=== PATIENT | female | born 1980 | race African-American/Black ===

== ENCOUNTER 2018-01-06 20:19 | Inpatient (IN) | payer MEDICARE ==
[2018-01-06] MEDS ORDERED: Propofol 1,000 MG/100 ML VIAL IV ONE (20:21)
[2018-01-06 20:53] LABS: Base Excess (BEa) -0.2 mEq/L (0 (+/-) 2.5); CO2 Tension 56.2 mmHg (35.0-45.0); O2 Tension (PaO2) 59.7 mmHg (80.0-100.0)
[2018-01-06 20:54] LABS: Analyzer IN Cardio ER; Calcium, Ionized 1.1 mmol/L (1.12-1.30); Hematocrit-ABG 40.8 % (36.0-47.0); Hemoglobin (Hb) 11.7 g/dL (12.0-16.0)
[2018-01-06 20:55] LABS: Puncture Site LRA
[2018-01-06 21:04] LABS: #Basophils 0.1 thou/uL (0.0-0.2); #Eosinphils 0.7 thou/uL (0.0-0.7); #Lymphocytes 2.7 thou/uL (1.20-3.40); #Monocytes 0.4 thou/uL (0.11-0.59); #Neutrophils 14.8 thou/uL (1.40-6.50); %Basophils 0.6 % (0.0-1.0); %Eosinophils 3.9 % (0.0-10.0); %Lymphocytes 14.4 % (21.0-51.0); %Monocytes 2.2 % (0.0-10.0); %Neutrophils 78.8 % (42.0-75.0); Mean Corpuscular HGB CONC 32.6 g/dL (32.0-36.0); Mean Corpuscular Hemoglobin 29.8 pg (27.0-31.0); Mean Corpuscular Volume 91.5 fl (81.0-99.0); Mean Platelet Volume 8.1 fL (7.4-10.4); Platelet Count 314 thou/uL (130-400); RBC Distribution Width 15.3 % (11.5-14.5); Red Blood Cell (RBC) Count 4.04 mill/uL (4.20-5.40); White Blood Cell (WBC) Count 18.8 thou/uL (4.8-10.8)
[2018-01-06 21:11] LABS: INR-International Normal Ratio 1.1; PTT 29.7 SEC (22.9-36.1); Prothrombin Time 14.6 SEC (12.0-14.7)
[2018-01-06] MEDS ORDERED: Furosemide 40 MG/4 ML VIAL ONE (21:14)
[2018-01-06] MEDS ORDERED: Midazolam HCl 5 mg/ml Vial ONE (21:14)
[2018-01-06] MEDS ORDERED: Furosemide 20 MG/2 ML VIAL ONE (21:14)
--- NOTE | 2018-01-06 21:24 | RAD ---
PORTABLE CHEST ONE VIEW: Date: 01-06-18 Time: 8:55 p.m. History: Dyspnea, respiratory failure, end stage renal disease. FINDINGS/IMPRESSION: There is an endotracheal tube with tip just below the level of the clavicular heads. The heart is enl arged. There is pulmonary vascular congestion. No pneumothoraces or effusions are seen. There is cons olidation in the right mid and lower lung zones and the left lower lung zone. POS: [facility]
[2018-01-06 21:30] LABS: CKMB 1.1 ng/mL (0-6.6); Troponin I 0.048 ng/mL (< 0.028)
--- NOTE | 2018-01-06 21:38 | CON ---
DATE OF CONSULTATION: 01/06/2018 HISTORY OF PRESENT ILLNESS: Ms. Hernandez is a 37-year-old black female with ESRD, had been on maint enance hemodialysis and admitted for shortness of breath. She was found to be in acute respiratory f ailure secondary to presumed congestive heart failure. She was subsequently intubated by the EMS. S he was found in the ER. I have evaluated this patient. I feel that she will need an emergency dialy sis tonight. According to the mother, the patient became suddenly short of breath early this afterno on. Prior to that, she was asymptomatic. Patient denied any syncopal episode or chest pain. REVIEW OF SYSTEMS: Not obtainable since the patient is intubated in ventilator support. HOME MEDICATIONS: Include prednisone Dosepak, clonidine 0.3 mg p.o. t.i.d., Ambien 5 mg at bedtime, pravastatin 20 mg tab at bedtime, NPH insulin 15 units subcu b.i.d., mycophenolate? 360 mg b.i.d., ca rvedilol 25 mg p.o. b.i.d. Please note that these medications from her old record. Also, for the completion of her records, she is no longer taking mycophenolate. PAST MEDICAL HISTORY: 1. ESRD, currently on maintenance hemodialysis Sunday, Sunday, and Sunday done at [facility] . 2. ESRD from hypertensive nephropathy. 3. Longstanding hypertension. 4. Status post failed living related renal transplant. 5. Type 2 diabetes mellitus. 6. Depression. 7. Hyperlipidemia. PAST SURGICAL HISTORY: 1. Status post failed living related renal transplant. 2. Status post AV fistula placement. 3. Status post cuffed hemodialysis catheter placement. 4. Status post AV fistula placement. 5. Status post renal allograft biopsy. SOCIAL HISTORY: The patient has a live-in boyfriend. She also lives with her mother. She lives in [place]. Two children. Alcohol none. Smoked for 3 months 3 cigarettes per day, currently not smokin g or drug abuse. Status post blood transfusion. Retired [employer]. Education, high school. ALLERGIES: None. TRAUMA: None. IMMUNIZATIONS: Up to date. HOSPITALIZATIONS: Please see past medical history. FAMILY HISTORY: No family history of ESRD. PHYSICAL EXAMINATION: VITAL SIGNS: Blood pressure is 110/70, heart rate 89, O2 sat 98%. GENERAL: She is sedated, intubated on ventilator support. SKIN: Adequate turgor. HEENT: She has pinkish conjunctivae, anicteric sclerae. NECK: No neck mass, no carotid bruits, no JVD. CHEST: No deformities. LUNGS: Harsh breath sounds. Positive for crackles. HEART: Tachycardic. No murmur, no gallops, no rubs. ABDOMEN: Globular, soft, nontender, no masses. EXTREMITIES: No edema. NEUROLOGIC: The patient is sedated. DIAGNOSTIC DATA: Laboratories are currently pending. Chest x-ray pending. ASSESSMENT AND PLAN: 1. Acute respiratory failure. Consider the possibility of flash pulmonary edema. Emergent hemodial ysis will be scheduled today. Continue supportive care. Continue ventilator support. 2. End-stage renal disease - In view of the acute respiratory failure and congestive heart failure, we will do an emergency dialysis of 3-1/2 hours. Attempt to remove around 3 liters of fluid as marzena ated by the patient. We will resume her back then on 3 times a week hemodialysis regimen. Overall, prognosis remains guarded. I had a long discussion with the fiance with the mother bobnevaeh negron diagnosis and prognosis. Agree with current management.
[2018-01-06] MEDS ORDERED: fentaNYL Citrate/PF 2,000 MCG in Sodium Chloride 0.9% 60 ML IV SCH (21:53)
[2018-01-06] MEDS ORDERED: CCU Electrolyte Replacement 1 EACH IVPB SCH (22:09)
[2018-01-06] MEDS ORDERED: Potassium Phosphate 12 MMOL in Sodium Chloride 0.9% 250 ML 250 ML IV PRN (22:15)
[2018-01-06] MEDS ORDERED: Magnesium Oxide 400 MG TAB PO PRN ×2 (22:15)
[2018-01-06] MEDS ORDERED: Potassium Chloride 40 MEQ in Premix Bag 1 BAG IVPB PRN (22:15)
[2018-01-06] MEDS ORDERED: CCU ELECTROLYTE REPLACEMENT PROTOCOL FS PRN (22:15)
[2018-01-06] MEDS ORDERED: Potassium Chloride 40 MEQ in Sodium Chloride 0.9% 250 ML 250 ML IVPB PRN (22:15)
[2018-01-06] MEDS ORDERED: Potassium Phosphate 15 MMOL in Sodium Chloride 0.9% 250 ML 250 ML IV PRN (22:15)
[2018-01-06] MEDS ORDERED: Magnesium 2 GM/NS 0.9% 100 ML 2 GM in Premix Bag 1 BAG IVPB PRN (22:15)
[2018-01-06] MEDS ORDERED: Potassium Phosphate 9 MMOL in Sodium Chloride 0.9% 100 ML IVPB PRN (22:15)
[2018-01-06] MEDS ORDERED: Potassium Chloride 20 MEQ TAB PO PRN (22:15)
[2018-01-06] MEDS ORDERED: Dextrose 5% in Water 1,000 ML IV PRN (22:24)
[2018-01-06] MEDS ORDERED: HumaLOG 300 UNITS/3 ML VIAL SC PRN (22:24)
[2018-01-06] MEDS ORDERED: VANCOMYCIN/ ZOSYN IVPB PRN (22:48)
[2018-01-06] MEDS ORDERED: DISCONTINUE PREVIOUS NARCOTIC PAIN MEDICATIONS AND BENZODIAZEPINES FS SCH (22:51)
[2018-01-06] MEDS ORDERED: Morphine 2 MG/ML SYRINGE SLOW IVP PRN (22:51)
[2018-01-06] MEDS ORDERED: Vancomycin HCl 1.25 GM in Sodium Chloride 0.9% 250 ML 250 ML IVPB SCH (23:30)
[2018-01-06] MEDS ORDERED: Piperacillin/Tazobactam 2.25 GM in Sodium Chloride 0.9% 100 ML IVPB SCH (23:59)
[2018-01-07] MEDS: Dextrose 50% Abboject 50 ML SYRINGE SLOW IVP PRN ×2 (00:23→05:46)
[2018-01-07 00:33] LABS: Troponin I 0.203 ng/mL (< 0.028)
[2018-01-07] MEDS: Propofol 1,000 MG/100 ML VIAL IV PRN ×6 (01:08→20:36)
[2018-01-07 02:30] LABS: Hep B Surf Ag Non-Reactive S/CO (NonReactive)
[2018-01-07] MEDS: Lorazepam 2 MG/ML VIAL SLOW IVP PRN ×5 (02:50→15:58)
[2018-01-07] MEDS ORDERED: Vancomycin HCl 750 MG in Sodium Chloride 0.9% 250 ML 250 ML IVPB SCH (03:30)
[2018-01-07] MEDS ORDERED: Vancomycin HCl 1.25 GM in Sodium Chloride 0.9% 250 ML 250 ML IVPB SCH (03:30)
[2018-01-07] MEDS ORDERED: Vancomycin HCl 1 GM in Premix Bag 1 BAG IVPB SCH (03:30)
[2018-01-07] MEDS ORDERED: HOLD VANCOMYCIN FOR LEVEL >20 FS SCH (03:30)
[2018-01-07] MEDS ORDERED: Vancomycin HCl 500 MG in Sodium Chloride 0.9% 100 ML IVPB SCH (03:30)
--- NOTE | 2018-01-07 04:19 | HP ---
PRIMARY CARE PHYSICIAN: Unable to obtain. PRESENTING COMPLAINT: Shortness of breath. HISTORY OF PRESENT ILLNESS: Mary Arzate is a 37-year-old female with a past medical history of end-stage renal disease on hemodialysis, history of nephrectomy, hypertension, diabetes mellitus, hypothyroidism, hyperlipidemia, who presents to the emergency room with shortness of breath, which worsened this evening. She has a history of pulmonary edema and required intubation about 2 years ago. She was markedly short of breath with last hemodialysis session being this Sunday. EMS was called and the patient was placed on CPAP; however, she became almost obtunded and had to be intubated. She was placed on propofol for sedation. PAST MEDICAL HISTORY: As stated in HPI. PAST SURGICAL HISTORY: Unable to obtain. FAMILY HISTORY: Reviewed and noncontributory. SOCIAL HISTORY: Does not smoke cigarette, drink alcohol, or use illicit drugs. ALLERGIES: None. REVIEW OF SYSTEMS: Unable to obtain as the patient was intubated. HOME MEDICATIONS: Reviewed and charted. PHYSICAL EXAMINATION: VITAL SIGNS: Stable with a heart rate of 97, oxygen saturation of 100%, and blood pressure of 151/97. GENERAL: Not in acute distress, intubated, sedated. HEENT: Normocephalic, atraumatic. Not pale, anicteric. PERRLA. Moist mucous membranes. RESPIRATORY: Bronchial breath sounds bilaterally with lower basilar crackles. CARDIOVASCULAR: S1 and S2 only. Regular rate and rhythm. No murmurs, rubs, or gallops. MUSCULOSKELETAL: No edema. SKIN: Warm, dry, well perfused. PSYCHIATRIC: The patient is intubated, unable to assess. NEUROLOGIC: The patient is intubated, unable to cooperate with exam. LABORATORY DATA: WBC 18,000. INR 1.1. Chemistry showed sodium of 134 with potassium of 5.9, chloride of 94, creatine kinase 106, troponin 0.048. BNP 3951.9. Blood gas showed pH of 7.3 with pCO2 of 56 and pO2 of 59. CXR: showed pulmonary vascular congestion with consolidation in the right middle and lower lung zones and left lower lung zones. EKG showed no signs of acute ischemia. ASSESSMENT AND PLAN: 1. Acute hypoxemic, hypercapnic respiratory failure. This is likely secondary to pulmonary edema versus PNA. The patient had hemodialysis on Sunday, but her chest x-ray showed marked pulmonary congestion with some consolidation, which means there could be a healthcare-associated pneumonia component. Nephrology has been consulted for urgent hemodialysis. The patient seems comfortable now after intubation. We will follow up with Nephrology for hemodialysis. Ensure VAP bundle, famotidine IV b.i.d., and start on prophylactic antibiotics. 2. End-stage renal disease, on hemodialysis as above 3. Hypertension. The patient's blood pressure seems to be controlled following sedation. We will monitor her blood pressure. Hydralazine and labetalol p.r.n. for systolic blood pressure greater than 180. 4. Hypothyroidism. We will monitor. 5. DM on Insulin: Will place on SSI, finger stick glucose Q6H, hypoglycemia protocol. CODE STATUS: FULL. MTDD
[2018-01-07 04:20] LABS: Band 2 % (5-11); Eosinophils 2 % (0-10); Hemoglobin 11.2 g/dL (12.0-16.0); Lymphocytes 14 % (21-51); MDiff Complete? YES; Mean Corpuscular HGB CONC 33.1 g/dL (32.0-36.0); Mean Corpuscular Hemoglobin 29.8 pg (27.0-31.0); Mean Platelet Volume 8.3 fL (7.4-10.4); Monocytes 2 % (0-10); Neutrophil 80 % (42-75); PLT Morphology Comment Appears Adequate; Platelet Count 233 thou/uL (130-400); RBC Distribution Width 15.2 % (11.5-14.5); Red Blood Cell (RBC) Count 3.76 mill/uL (4.20-5.40); White Blood Cell (WBC) Count 10.4 thou/uL (4.8-10.8)
[2018-01-07 04:27] LABS: ALT (SGPT) 15 U/L (8-55); AST (SGOT) 36 U/L (5-34); Albumin 4.2 g/dL (3.5-5.0); Alkaline Phosphatase 94 U/L (40-150); Anion Gap 13 mmol/L (10-20); BUN (Urea Nitrogen) 19 mg/dL (7.0-18.7); Bilirubin, Total 0.7 mg/dL (0.2-1.2); Calc. Creatinine Clearance 21 mL/min (70-130); Calcium 9.7 mg/dL (7.8-10.44); Carbon Dioxide 31 mmol/L (22-29); Chloride 98 mmol/L (98-107); Estimated GFR-MDRD 15; Globulin 3.3 g/dL (2.4-3.5); Glucose 75 mg/dL (70-105); Potassium 3.2 mmol/L (3.5-5.1); Protein, Total 7.5 g/dL (6.0-8.3); Sodium 139 mmol/L (136-145)
[2018-01-07 04:30] LABS: Troponin I 0.282 ng/mL (< 0.028)
[2018-01-07] MEDS: Piperacillin/Tazobactam 2.25 GM in Sodium Chloride 0.9% 100 ML IVPB SCH ×4 (05:56→23:54)
[2018-01-07] MEDS ORDERED: Furosemide 40 MG/4 ML VIAL SLOW IVP SCH ×2 (06:00→14:00)
[2018-01-07] MEDS ORDERED: hydrALAZINE 20 MG/ML VIAL SLOW IVP PRN (06:09)
[2018-01-07] MEDS: Acetaminophen 650 MG Suppository PR PRN ×2 (07:37→16:04)
[2018-01-07] MEDS: Heparin 5,000 UNITS/ML VIAL SC SCH ×3 (07:44→20:30)
[2018-01-07] MEDS: Famotidine/PF 20 mg/2ml Vial SLOW IVP SCH (07:44)
--- NOTE | 2018-01-07 09:11 | CON ---
DATE OF CONSULTATION: 01/07/2018 Ms. Hernandez is a 37-year-old female who has seen Dr. Flores in the past. She is intubated on the ve nt. Emergency dialysis performed. She sees Dr. Anderson, apparently undergoing dialysis in [place]. X-r ay still shows rather impressive bilateral pleural effusion, cephalization. She was here in September 2013. She is status post failed transplant, now on dialysis. Additional information not obtained because she is not talking. Intubated. PAST MEDICAL HISTORY: Pertinent for hypertension, renal failure, diabetes. Dialysis Sunday, and Fridays, hypertension, failed a living related renal transplant, diabetes, dyslipidemia. PAST SURGICAL HISTORY: Multiple access fistulas, renal biopsy. SOCIAL/FAMILY HISTORY: No alcohol abuse. Minimal tobacco abuse. MEDICATIONS: Her list of medicine from home has included prednisone 10, Catapres 0.3, Ambien 5, Prav achol 20, insulin, Myfortic 360, insulin, Pepcid, Celexa 10, Coreg and amlodipine. On admission she was started on vancomycin and Zosyn. REVIEW OF SYSTEMS: Unobtainable. Please note I reviewed all medical records, all x-rays. No family members to give additional informa tion: PHYSICAL EXAMINATION: VITAL SIGNS: Pulse 170, sats 96%, respirations 30, blood pressure is 174/100. CHEST: Chest revealed decreased breath sounds, no wheezing. Bilateral rhonchi and crackles. CARDIAC: Normal S1, S2. ABDOMEN: Soft, no masses. LABORATORY DATA: White count 10,000. H&H 10 and 33, platelet count is 233, creatinine 3.95, BUN 19. IMPRESSION: 1. Respiratory failure, bilateral pulmonary edema. 2. Failed renal transplant. 3. Hypertension. 4. Diabetes. 5. Depression. PLAN: Start nutrition, PT and supportive care. Continue antibiotics, started steroids. Continue an tirejection medication. We will wean when x-ray is much improved. Discuss with family as they arrive. Forty-five minutes critical care time.
--- NOTE | 2018-01-07 09:26 | RAD ---
AP VIEW CHEST: HISTORY: Ventilator-dependent patient. Respiratory distress. Shortness of breath. FINDINGS: AP view chest is obtained on 01/07/18. Comparison is made to previous exam from 01/06/18. AP view chest demonstrates nasogastric tube in place. There is marked cardiomegaly seen. There is extensive airspace opacity seen in both lung bases and central aspects of both lungs. This is compatible with pulmonary edema or pneumonia. Findings not significantly changed since the previo us day's exam. IMPRESSION: 1. Bilateral perihilar and lung base airspace opacities. 2. Cardiomegaly. POS: [facility]
--- NOTE | 2018-01-07 10:00 | PRG ---
DATE OF SERVICE: 01/07/2018 SUBJECTIVE: Ms. Hernandez is a 37-year-old black female who was admitted for congestive heart failur e. She was intubated. She underwent hemodialysis yesterday and 3 liters of fluid was removed. I reeder ve reevaluated this patient this morning. She will need another dialytic intervention. My plan is t o do another 3-hour dialysis with 3 liters of fluid removal. OBJECTIVE: VITAL SIGNS: Blood pressure is 189/102, heart rate is 119, respiratory rate 32, pulse ox 99%. GENERAL: Sedated and intubated on ventilator support. SKIN: Adequate turgor. HEENT: She has pinkish conjunctivae, anicteric sclerae. NECK: No neck mass, no carotid bruits, no JVD. CHEST: No deformities. LUNGS: Clear. Decreased breath sounds. HEART: Normal sinus rhythm. No murmur, no gallops, no rubs. ABDOMEN: Globular, soft, nontender, no masses. EXTREMITIES: No edema, no deformities. MEDICATIONS: 01/07/2018 - Reviewed. LABORATORY: 01/07/2018 - White count 10.4, hemoglobin 11.2, hematocrit 33.9. Sodium 139, potassium 3.2, chloride 98, carbon dioxide 31, BUN 90, creatinine 3.95. AST 36, ALT 15. ASSESSMENT AND PLAN: 1. Congestive heart failure. We will do another dialytic intervention. Max out fluid removal as to lerated. 2. End-stage renal disease, stable. We will continue current Sunday, Sunday, Sunday hemodialysis . Extra dialysis in a.m. if needed to further remove fluid with this patient. 3. Hypertension. Continue current blood pressure meds. I agree with current management.
[2018-01-07 11:13] LABS: Actual Bicarbonate (HCO3a) 26.5 mEq/L (22-26); Base Excess (BEa) 3.2 mEq/L (0 (+/-) 2.5); CO2 Tension 35.7 mmHg (35.0-45.0); Hematocrit-ABG 35.2 % (36.0-47.0); Hemoglobin (Hb) 10.3 g/dL (12.0-16.0); O2 Tension (PaO2) 59.8 mmHg (80.0-100.0); pH, Arterial 7.49 (7.35-7.45)
[2018-01-07 11:14] LABS: ALV-art Gradient 252.075 (0-20); Calcium, Ionized 1.1 mmol/L (1.12-1.30); Puncture Site LBA
[2018-01-07] MEDS: Hydrocortisone Sod Succ/PF 100 mg/2 ml Vial IVP SCH ×3 (12:18→23:53)
--- NOTE | 2018-01-07 13:43 | PDOC.PN ---
- Subjective Encounter Start Date: 01/07/18 Encounter Start Time: 11:00 Subjective: pt intubated - Objective Vital Signs & Weight: Vital Signs (12 hours) Temp Pulse Resp BP Pulse Ox 01/07/18 12:07 120 H 187/106 H 01/07/18 12:00 99.9 F H 42 H 01/07/18 10:00 27 H 01/07/18 08:00 102.1 F H 33 H 01/07/18 07:33 102.1 F H 118 H 41 H 100 01/07/18 06:43 119 H 178/93 H 94 L 01/07/18 06:39 118 H 43 H 93 L 01/07/18 06:15 112 H 191/101 H 01/07/18 05:36 29 H 01/07/18 04:00 100.8 F H 01/07/18 03:53 33 H 01/07/18 01:50 22 H Weight Admit Weight 153 lb 3.2 oz Weight 146 lb 6.191 oz Most Recent Monitor Data Heart Rate from ECG 124 NIBP 178/107 NIBP BP-Mean 133 Respiration from ECG 43 SpO2 100 I&O: 01/06/18 01/07/18 01/08/18 06:59 06:59 06:59 Intake Total 316 Output Total 650 Balance -334 Result Diagrams: 01/07/18 03:24 01/07/18 03:30 Additional Labs: Accuchecks 01/07/18 01/07/18 01/07/18 12:16 06:39 05:41 POC Glucose 80 132 H 63 L 01/07/18 01/07/18 01/07/18 03:14 02:11 00:57 POC Glucose 75 79 84 01/07/18 01/06/18 00:00 23:11 POC Glucose 67 L 73 Phys Exam - Physical Examination Neck: no nodes, no JVD Respiratory: wheezing present (rhonchi all voer) Cardiovascular: RRR (tachycardia) Gastrointestinal: soft Musculoskeletal: no edema Dx/Plan - Plan * . 1) acute hypoxic resp failure 2) ESRD on dialysis 3) diastolic HF 4) hpothyrodism 5) htn plan: possible secondary to volume overload vs pna. pt on abx for now. intubated 01/06 on dialysis per nephrology pt's last echo was 2012 her ef was 70% will reorder echo. pt's bp is uncotrolled will give prn and pt is on solucortef which can also cause pt to have elevated bp. Consider stopping solucortef.. Review of Systems - Medications/Allergies Allergies/Adverse Reactions: Allergies Allergy/AdvReac Type Severity Reaction Status Date / Time No Known Allergies Allergy Unverified 10/06/13 17:19 Medications: Current Medications Acetaminophen (Tylenol) 650 mg [place] Q6H PRN PRN Reason: Fever > 101 or Mild Pain Last Admin: 01/07/18 07:37 Dose: 650 mg Dextrose/Water (Dextrose 50%) 25 gm SLOW IVP PRN PRN PRN Reason: Hypoglycemia Last Admin: 01/07/18 05:46 Dose: 25 gm Famotidine (Pepcid) 20 mg SLOW IVP DAILY [facility] Last Admin: 01/07/18 07:44 Dose: Not Given Furosemide (Lasix) 40 mg SLOW IVP 0600,1400 NILA Last Admin: 01/07/18 13:20 Dose: Not Given Glucagon (Glucagon) 1 mg IM PRN PRN PRN Reason: Hypoglycemia Heparin Sodium (Porcine) (Heparin) 5,000 units SC TID NILA Last Admin: 01/07/18 07:44 Dose: 5,000 units Hydralazine HCl (Apresoline) 10 mg SLOW IVP Q6H PRN PRN Reason: SBP > 180 Last Admin: 01/07/18 06:15 Dose: 10 mg Hydrocortisone Sodium Succinate (Solu-Cortef) 50 mg IVP Q6HR NILA Stop: 01/14/18 12:01 Last Admin: 01/07/18 12:18 Dose: 50 mg Fentanyl Citrate 2,000 mcg/ (Sodium Chloride) 100 mls @ 0 mls/hr IV INF NILA; Per Protocol PRN Reason: Protocol Stop: 02/05/18 21:53 Dextrose/Water (D5w) 1,000 mls @ 0 mls/hr IV .Q0M PRN; As Directed PRN Reason: Hypoglycemia Fentanyl Citrate (Fentanyl Bolus) 250 mls @ 0 mls/hr IVPB PRN PRN; As Directed PRN Reason: Breakthrough pain Stop: 02/05/18 22:51 Piperacillin Sod/Tazobactam (Sod 2.25 gm/ Sodium Chloride) 100 mls @ 200 mls/ hr IVPB Q6HR NILA Last Admin: 01/07/18 12:19 Dose: 100 mls Vancomycin HCl 1.25 gm/ Sodium (Chloride) 250 mls @ 166.667 mls/hr IVPB [facility] Vancomycin HCl 1 gm/ Device 200 mls @ 200 mls/hr IVPB [facility] Vancomycin HCl 750 mg/ Sodium (Chloride) 250 mls @ 250 mls/hr [facility] Vancomycin HCl 500 mg/ Sodium (Chloride) 100 mls @ 100 mls/hr IVPB [facility] Influenza Virus Vaccine (Fluzone Quad [id number] Syringe) 0.5 ml IM .ONCE ONE Stop: 01/08/18 09:01 Insulin Human Lispro (Humalog) 0 units SC .MILD SLIDING SCALE PRN PRN Reason: Mild Correctional Scale Lorazepam (Ativan) 2 mg SLOW IVP Q2H PRN PRN Reason: Anxiety to achieve Houser 2-3 Stop: 02/05/18 22:51 Last Admin: 01/07/18 09:21 Dose: 2 mg Miscellaneous Medication (Pharmacy To Dose) 1 each IVPB PRN PRN PRN Reason: Pharmacy to dose Morphine Sulfate (Morphine Sulfate) 2 mg SLOW IVP Q2H PRN PRN Reason: Breakthrough pain Stop: 02/05/18 22:51 Hold Vancomycin For (Level >20) 0 each FS .AT DIALYSIS [facility] Propofol (Diprivan) 1,000 mg IV INF PRN; Protocol PRN Reason: TO ACHIEVE HOUSER SCORE 2-3 Stop: 02/05/18 22:51 Last Admin: 01/07/18 12:16 Dose: 1,000 mg Sodium Chloride (Flush - Normal Saline) 10 ml IVF PRN PRN PRN Reason: Saline Flush Sodium Chloride (Flush - Normal Saline) 10 ml IVF Q12HR [facility] Last Admin: 01/07/18 07:44 Dose: 10 ml unable to do ROS pt is intubated
[2018-01-07] MEDS: Labetalol HCl 100 MG/20 ML VIAL SLOW IVP PRN (18:10)
[2018-01-08 05:02] LABS: Hemoglobin 12.2 g/dL (12.0-16.0); Mean Corpuscular HGB CONC 32.5 g/dL (32.0-36.0); Mean Corpuscular Volume 92.2 fl (81.0-99.0); Mean Platelet Volume 8.7 fL (7.4-10.4); Platelet Count 256 thou/uL (130-400); RBC Distribution Width 15.7 % (11.5-14.5); Red Blood Cell (RBC) Count 4.06 mill/uL (4.20-5.40); White Blood Cell (WBC) Count 11.8 thou/uL (4.8-10.8)
[2018-01-08 05:03] LABS: Band 3 % (5-11); Lymphocytes 20 % (21-51); MDiff Complete? YES; Monocytes 3 % (0-10); Neutrophil 73 % (42-75); PLT Morphology Comment Appears Adequate; RBC Morphology Normal; Reactive Lymphocytes 1 % (0-10)
[2018-01-08] MEDS: Propofol 1,000 MG/100 ML VIAL IV PRN (05:03)
[2018-01-08] MEDS: Hydrocortisone Sod Succ/PF 100 mg/2 ml Vial IVP SCH (05:05)
[2018-01-08] MEDS: Piperacillin/Tazobactam 2.25 GM in Sodium Chloride 0.9% 100 ML IVPB SCH ×3 (05:07→18:55)
[2018-01-08 05:24] LABS: ALT (SGPT) 13 U/L (8-55); AST (SGOT) 36 U/L (5-34); Albumin 4.1 g/dL (3.5-5.0); Alkaline Phosphatase 82 U/L (40-150); Anion Gap 22 mmol/L (10-20); BUN (Urea Nitrogen) 34 mg/dL (7.0-18.7); Bilirubin, Total 0.7 mg/dL (0.2-1.2); Calc. Creatinine Clearance 11 mL/min (70-130); Calcium 10.3 mg/dL (7.8-10.44); Carbon Dioxide 24 mmol/L (22-29); Chloride 97 mmol/L (98-107); Estimated GFR-MDRD 8; Globulin 3.7 g/dL (2.4-3.5); Glucose 127 mg/dL (70-105); Potassium 4.8 mmol/L (3.5-5.1); Protein, Total 7.8 g/dL (6.0-8.3); Sodium 138 mmol/L (136-145)
[2018-01-08 07:14] LABS: Actual Bicarbonate (HCO3a) 28.2 mEq/L (22-26); Base Excess (BEa) 3.6 mEq/L (0 (+/-) 2.5); CO2 Tension 42.8 mmHg (35.0-45.0); Calcium, Ionized 1.1 mmol/L (1.12-1.30); Hematocrit-ABG 38.9 % (36.0-47.0); Hemoglobin (Hb) 11.7 g/dL (12.0-16.0); pH, Arterial 7.44 (7.35-7.45)
[2018-01-08 07:15] LABS: Puncture Site L.R.
--- NOTE | 2018-01-08 07:47 | RAD ---
CHEST 1 VIEW: HISTORY: Dyspnea. Followup. COMPARISON: 01/07/18. FINDINGS: Cardiac silhouette remains magnified and enlarged. Pulmonary vasculature is less engorged than on th e prior study. Dense widespread bilateral infiltrates are less dense than on the prior exam. Medias tinum is midline. Lines and tubes appear unchanged in position. No evidence of pneumothorax. IMPRESSION: Improved aeration in the lungs with decrease in degree of pulmonary vascular congestion. POS: [facility]
[2018-01-08 08:12] LABS: Vancomycin, Random 8.4 ug/mL (See Comment)
--- NOTE | 2018-01-08 08:51 | PRG ---
DATE OF SERVICE: 01/08/2018 She is sedated on the vent. X-ray looks much improved after being dialyzed yesterday. PHYSICAL EXAMINATION: VITAL SIGNS: Blood pressure is 134/80, pulse 80, respirations 18. CHEST: Chest reveals decreased breath sounds, no wheezing. CARDIAC: Normal S1, S2. ABDOMEN: Soft, no mass. LABORATORY DATA: White count 11,000, H&H 12 and 37, platelet count 256, pO2 164, PCO2 27.44, rate of 10, 50%. Creatinine is 6.83. IMPRESSION: 1. Renal failure. 2. Respiratory failure. 3. Pulmonary edema, improved. 4. Status post transplant. PLAN: Cultures are so far negative. She is still on broad-spectrum antibiotics, which include vancomycin. When she is a little bit more awake, we will try and wean. In the meantime, continue nutrition and PT. One-half hour critical care time.
[2018-01-08] MEDS ORDERED: FLU VACC QS2017-18 36 mo. & older 0.5 ML SYRINGE IM ONE (09:00)
[2018-01-08] MEDS: Heparin 5,000 UNITS/ML VIAL SC SCH ×3 (09:45→21:17)
[2018-01-08] MEDS: Labetalol HCl 100 MG/20 ML VIAL SLOW IVP PRN ×2 (09:58→15:32)
[2018-01-08] MEDS ORDERED: DC Sedation Protocol FS ONE (10:12)
[2018-01-08] MEDS: Famotidine/PF 20 mg/2ml Vial SLOW IVP SCH (10:32)
--- NOTE | 2018-01-08 10:34 | PRG ---
DATE OF SERVICE: 01/08/2018 SUBJECTIVE: Ms. Hernandez is a 37-year-old black female with ESRD and admitted for congestive heart failure. She underwent 2 consecutive days of dialysis. She is currently much improved. She is now extubated. No other complaints. PHYSICAL EXAMINATION: VITAL SIGNS: Blood pressure ranging from 136/87 to 200/109. Her heart rate is 112, respiratory rate 24, pulse ox 100%. GENERAL: Awake, alert, comfortable, not in distress. SKIN: Adequate turgor. HEENT: Pinkish conjunctivae. Anicteric sclerae. NECK: No neck mass, no carotid bruits, no JVD. CHEST: No deformities. LUNGS: Clear breath sounds, no wheezing, no crackles. HEART: Normal sinus rhythm. No murmur, no gallops or rubs. ABDOMEN: Globular, soft, nontender, no masses. EXTREMITIES: No edema. MEDICATIONS: 01/08/2018 - Reviewed. LABORATORY: 01/08/2018 - White count 11.8, hemoglobin 12.2. Sodium 138, potassium 4.8, chloride 97, carbon dioxide 24, BUN 34, creatinine 6.87. ASSESSMENT AND PLAN: 1. Congestive heart failure, clinically much improved with dialysis. Continue supportive care. 2. End-stage renal disease, stable. We will continue current Sunday, Sunday, Sunday dialysis. N o indication for any dialytic intervention today. 3. Acute respiratory failure, much improved. The patient is now extubated. 4. Hypertension. Adjust blood pressure medications as needed. Consider resuming back her home bloo d pressure meds. I would at least consider starting this patient on nifedipine at 30 mg XL tab once a day.
[2018-01-08] MEDS: Famotidine 40 MG/4 ML VIAL IV SCH (12:20)
[2018-01-08] MEDS: cloNIDine 0.3 MG TAB PO SCH ×2 (15:29→21:17)
[2018-01-08] MEDS ORDERED: Mycophenolate ER 180 MG TAB PO SCH (21:00)
[2018-01-08] MEDS ORDERED: Hydrocortisone Sod Succ/PF 100 mg/2 ml Vial IVP SCH (21:00)
--- NOTE | 2018-01-08 21:14 | PDOC.PN ---
- Subjective Encounter Start Date: 01/08/18 Encounter Start Time: 12:30 Subjective: pt up in bed extubated - Objective Vital Signs & Weight: Vital Signs (12 hours) Temp Pulse BP Pulse Ox 01/08/18 15:32 112 H 191/106 H 01/08/18 15:29 191/106 H 01/08/18 13:00 98.5 F 01/08/18 12:00 94 L 01/08/18 09:58 104 H 187/107 H Weight Admit Weight 153 lb 3.2 oz Weight 138 lb 3.677 oz Most Recent Monitor Data Heart Rate from ECG 100 NIBP 152/87 NIBP BP-Mean 102 Respiration from ECG 22 SpO2 92 I&O: 01/07/18 01/08/18 01/09/18 06:59 06:59 06:59 Intake Total 316 1359 636 Output Total 650 280 0 Balance -334 1079 636 Result Diagrams: 01/09/18 04:38 01/09/18 04:38 Additional Labs: Accuchecks 01/08/18 01/08/18 01/08/18 19:30 15:27 05:06 POC Glucose 95 72 126 H 01/08/18 00:05 POC Glucose 127 H Phys Exam - Physical Examination HEENT: PERRLA Neck: no nodes mild rales present to bases Cardiovascular: RRR, no significant murmur Gastrointestinal: soft, non-tender Musculoskeletal: no edema Dx/Plan - Plan * . 1) acute hypoxic resp failure 2) ESRD on dialysis 3) diastolic HF 4) hpothyrodism 5) htn plan: possible secondary to volume overload vs pna. pt on abx for now. intubated 01/06 on dialysis per nephrology pt's last echo was 2012 her ef was 70% will reorder echo. pt's bp is uncotrolled will give prn and pt is on solucortef which can also cause pt to have elevated bp. Consider stopping solucortef.. 01/08 pt exubated, elevated bp. will continue to monitor. Review of Systems - Review of Systems ENT: negative: Ear Pain, Ear Discharge, Nose Pain, Nose Discharge, Nose Congestion, Mouth Pain, Mouth Swelling, Throat Pain, Throat Swelling, Other Respiratory: negative: Cough, Dry, Shortness of Breath, Hemoptysis, SOB with Excertion, Pleuritic Pain, Sputum, Wheezing Cardiovascular: negative: chest pain, palpitations, orthopnea, paroxysmal nocturnal dyspnea, edema, light headedness, other Gastrointestinal: negative: Nausea, Vomiting, Abdominal Pain, Diarrhea, Constipation, Melena, Hematochezia, Other - Medications/Allergies Allergies/Adverse Reactions: Allergies Allergy/AdvReac Type Severity Reaction Status Date / Time No Known Allergies Allergy Unverified 10/06/13 17:19 Medications: Current Medications Acetaminophen (Tylenol) 650 mg [place] Q6H PRN PRN Reason: Fever > 101 or Mild Pain Last Admin: 01/07/18 16:04 Dose: 650 mg Acetaminophen (Tylenol) 650 mg PO Q6H PRN PRN Reason: Pain Last Admin: 01/09/18 21:43 Dose: 650 mg Amlodipine Besylate (Norvasc) 10 mg PO DAILY [facility] Last Admin: 01/09/18 09:11 Dose: 10 mg Carvedilol (Coreg) 25 mg PO BID [facility] Last Admin: 01/09/18 20:35 Dose: 25 mg Cefdinir (Omnicef) 300 mg PO DAILY [facility] Stop: 01/13/18 09:01 Last Admin: 01/09/18 09:11 Dose: 300 mg Citalopram Hydrobromide (Celexa) 10 mg PO DAILY [facility] Last Admin: 01/09/18 09:09 Dose: 10 mg Clonidine (Catapres) 0.3 mg PO TID [facility] Last Admin: 01/09/18 20:35 Dose: 0.3 mg Dextrose/Water (Dextrose 50%) 25 gm SLOW IVP PRN PRN PRN Reason: Hypoglycemia Last Admin: 01/07/18 05:46 Dose: 25 gm Famotidine (Pepcid) 20 mg IV DAILY [facility] Last Admin: 01/09/18 09:12 Dose: 20 mg Glucagon (Glucagon) 1 mg IM PRN PRN PRN Reason: Hypoglycemia Heparin Sodium (Porcine) (Heparin) 5,000 units SC TID [facility] Last Admin: 01/09/18 20:38 Dose: 5,000 units Dextrose/Water (D5w) 1,000 mls @ 0 mls/hr IV .Q0M PRN; As Directed PRN Reason: Hypoglycemia Vancomycin HCl 1 gm/ Device 200 mls @ 200 mls/hr IVPB [facility] Last Admin: 01/09/18 11:53 Dose: 200 mls Vancomycin HCl 750 mg/ Sodium (Chloride) 250 mls @ 250 mls/hr IVPB [facility] Vancomycin HCl 500 mg/ Sodium (Chloride) 100 mls @ 100 mls/hr IVPB [facility] Insulin Human Lispro (Humalog) 0 units SC .MILD SLIDING SCALE PRN PRN Reason: Mild Correctional Scale Labetalol HCl (Normodyne) 10 mg SLOW IVP Q4H PRN PRN Reason: SBP Greater Than 180 Miscellaneous Medication (Pharmacy To Dose) 1 each IVPB PRN PRN PRN Reason: Pharmacy to dose Nifedipine (Procardia Xl) 30 mg PO DAILY [facility] Last Admin: 01/09/18 09:11 Dose: 30 mg Hold Vancomycin For (Level >20) 0 each FS .AT DIALYSIS [facility] Prednisone (Prednisone) 5 mg PO QAM-WM [facility] Last Admin: 01/09/18 09:47 Dose: 5 mg Sodium Chloride (Flush - Normal Saline) 10 ml IVF PRN PRN PRN Reason: Saline Flush Last Admin: 01/08/18 12:21 Dose: 10 ml Sodium Chloride (Flush - Normal Saline) 10 ml IVF Q12HR [facility] Last Admin: 01/09/18 20:38 Dose: 10 ml
[2018-01-08] MEDS: Carvedilol 25 MG TAB PO SCH (21:17)
[2018-01-09] MEDS: Piperacillin/Tazobactam 2.25 GM in Sodium Chloride 0.9% 100 ML IVPB SCH ×2 (00:35→06:03)
[2018-01-09 05:09] LABS: Lymphocytes 20 % (21-51); MDiff Complete? YES; Mean Corpuscular Hemoglobin 30.2 pg (27.0-31.0); Mean Corpuscular Volume 91.7 fl (81.0-99.0); Mean Platelet Volume 8.5 fL (7.4-10.4); Monocytes 3 % (0-10); Neutrophil 77 % (42-75); PLT Morphology Comment Appears Adequate; Platelet Count 253 thou/uL (130-400); RBC Distribution Width 15.7 % (11.5-14.5); Red Blood Cell (RBC) Count 3.63 mill/uL (4.20-5.40); White Blood Cell (WBC) Count 11.1 thou/uL (4.8-10.8)
[2018-01-09 05:21] LABS: ALT (SGPT) 11 U/L (8-55); AST (SGOT) 35 U/L (5-34); Albumin 3.7 g/dL (3.5-5.0); Alkaline Phosphatase 73 U/L (40-150); Anion Gap 26 mmol/L (10-20); BUN (Urea Nitrogen) 63 mg/dL (7.0-18.7); Bilirubin, Total 0.6 mg/dL (0.2-1.2); Calc. Creatinine Clearance 8 mL/min (70-130); Calcium 9.6 mg/dL (7.8-10.44); Carbon Dioxide 21 mmol/L (22-29); Chloride 99 mmol/L (98-107); Estimated GFR-MDRD 5; Globulin 3.3 g/dL (2.4-3.5); Glucose 111 mg/dL (70-105); Potassium 5.3 mmol/L (3.5-5.1); Sodium 141 mmol/L (136-145)
--- NOTE | 2018-01-09 08:18 | PRG ---
DATE OF SERVICE: 01/09/2018 She is awake, alert, responsive, extubated yesterday, appears to be in no distress. She is sitting o n the side of the bed. PHYSICAL EXAMINATION: VITAL SIGNS: Sats are 99%, blood pressure is much improved 161/86, pulse 118. CHEST: Chest revealed decreased breath sounds, no wheezing. CARDIAC: Normal S1-S2. No gallops. LABORATORY: White count 11,000, H&H 9 and 30, platelet count is normal. Creatinine is 9.2. X-RAY: X-ray still shows cardiomegaly, left pleural effusion. IMPRESSION: 1. Congestive heart failure. 2. Renal failure, status post transplant. 3. Hypertension. PLAN: Discontinue all antibiotics, p.o. medication. She can be transferred out of the ICU post-dial ysis. Continue home medication.
--- NOTE | 2018-01-09 08:50 | RAD ---
AP CHEST: History: Patient in CCU on ventilator. Date: 01-09-18 Comparison: 01-08-18 FINDINGS: AP chest demonstrates cardiomegaly. There is loss of the left lung hemidiaphragm interface compatible with left lower lobe area of consol idation concerning for left lower lobe pneumonia. This is slightly more prominent than on the previou s comparison exam. Some air bronchograms seen in the left lower lobe as well. Cardiomegaly is seen. P ulmonary vascular congestion is seen. IMPRESSION: Increasing left lower lobe opacity compatible with left lower lobe pneumonia. POS: [facility]
[2018-01-09] MEDS: cloNIDine 0.3 MG TAB PO SCH ×3 (09:08→20:35)
[2018-01-09] MEDS: Citalopram 20 MG TAB PO SCH (09:09)
[2018-01-09] MEDS: Carvedilol 25 MG TAB PO SCH ×2 (09:10→20:35)
[2018-01-09] MEDS: Cefdinir 300 MG CAP PO SCH (09:11)
[2018-01-09] MEDS: NIFEdipine XL 30 MG TAB PO SCH (09:11)
[2018-01-09] MEDS: Amlodipine 10 MG TAB PO SCH (09:11)
[2018-01-09] MEDS: Heparin 5,000 UNITS/ML VIAL SC SCH ×3 (09:12→20:38)
[2018-01-09] MEDS: Famotidine 40 MG/4 ML VIAL IV SCH (09:12)
--- NOTE | 2018-01-09 09:28 | PQF ---
CLINICAL DOCUMENTATION IMPROVEMENT CLARIFICATION FORM: ICD-10 Updated PLEASE DO AN ADDENDUM TO THE PROGRESS NOTE WITH ANY DOCUMENTATION UPDATES OR ADDITIONS AND CARRY THROUGH TO DC SUMMARY. THANK YOU. DATE: 01/09 ATTN: DR. MAGUI AUSTIN Please exercise your independent, professional judgment in responding to the clarification form. Clinical indicators are provided on the bottom of this form for your review. Please check appropriate box(s): DIASTOLIC HEART FAILURE: [ ] Acute [ x ] Acute on Chronic [ ] Chronic [ ] Other diagnosis [ ] Unable to determine For continuity of documentation, please document condition throughout progress notes and discharge summary. Thank You. CLINICAL INDICATORS - SIGNS / SYMPTOMS / LABS ATTENDING PHYSICIAN PN 01/07: DX/PLAN: 3) DIASTOLIC CHF NEPHROLOGY PN 01/08: ASSESSMENT/PLAN: 1. CONGESTIVE HEART FAILURE, CLINICALLY MUCH IMPROVED W/DIALYSIS. PULMONOLOGY PN 01/09: IMPRESSION: 1. CONGESTIVE HEART FAILURE CXR 01/06: ...THERE IS PULMONARY VASCULAR CONGESTION; 01/08: PULMONARY VASCULATURE IS LESS ENGORGED THAN ON PRIOR STUDY. ...DECREASE IN DEGREE OF PULMONARY VASCULAR CONGESTION RISKS: ACUTE HYPOXEMIC RESPIRATORY FAILURE ESRD ON DIALYSIS HTN TREATMENTS: CCU MONITORING INTUBATION & MECHANICAL VENTILATION ECHO THANK YOU! [employer] (This form is maintained as a part of the permanent medical record) 2015 [employer]. All Rights Reserved [employer] Jose RN, BSN [email or web address] Office: [phone] JUN
[2018-01-09] MEDS: predniSONE 5 MG TAB PO SCH (09:47)
--- NOTE | 2018-01-09 09:51 | PRG ---
DATE OF SERVICE: 01/09/2018 SERVICE: Renal Medicine. SUBJECTIVE: Ms. Hernandez is a 37-year-old black female with ESRD and admitted for congestive heart failure. She was intubated and placed on ventilator support. Emergent hemodialysis was done with si gnificant fluid removal. She is now extubated. This morning, she is feeling better. She denies any chest pain or shortness of breath. We are currently dialyzing her. My plan is to max out fluid rem oval as tolerated by the patient. OBJECTIVE: VITAL SIGNS: Blood pressure 161/86, heart rate is 93, respiratory rate 19, O2 sat is 92%, and temper ature 98.1. GENERAL EXAM: Awake, alert, supine, comfortable, not in distress. SKIN: Adequate turgor. HEENT: Pinkish conjunctivae. Anicteric sclerae. NECK: No neck mass, no carotid bruits, no JVD. CHEST: No deformities. LUNGS: Clear breath sounds. HEART: Normal sinus rhythm. No murmur, no gallops, no rubs. ABDOMEN: Globular, soft, nontender, no masses. EXTREMITIES: No edema, no deformities. Medications of 01/09/2018 reviewed. LABORATORY DATA: 01/09/2018, white count 11.1, hemoglobin 11, sodium 141, potassium 5.3, chloride 99 , carbon dioxide 26, BUN 63, creatinine 9.92. AST is 35, ALT 11, albumin 3.7. ASSESSMENT AND PLAN: 1. Congestive heart failure, clinically much improved with fluid removal via dialysis. Continue sup portive care. 2. End-stage renal disease. Continuing Sunday, Sunday, Sunday hemodialysis. My plan is to attem pt to max out fluid removal as tolerated by the patient. No heparin use at the present time. 3. Mild hyperkalemia - the patient to undergo dialysis. We will recheck basic metabolic panel and C BC in a.m.
[2018-01-09 10:04] LABS: Vancomycin, Trough 6.3 ug/mL
[2018-01-09 14:08] VITALS: BMI 23.6
[2018-01-09] MEDS ORDERED: Labetalol HCl 100 MG/20 ML VIAL SLOW IVP PRN (14:32)
[2018-01-09] MEDS ORDERED: oxyCODONE 5 MG TAB PO PRN (14:32)
[2018-01-09] MEDS ORDERED: Acetaminophen 325 MG TAB PO PRN (16:15)
--- NOTE | 2018-01-09 22:15 | PDOC.PN ---
- Subjective Encounter Start Date: 01/09/18 Encounter Start Time: 11:45 - Objective Vital Signs & Weight: Vital Signs (12 hours) Temp Pulse Resp BP BP Pulse Ox 01/09/18 20:35 122/81 01/09/18 20:30 99.7 F H 89 18 97 01/09/18 17:05 99.2 F 86 20 126/78 95 01/09/18 16:00 98.5 F 01/09/18 14:30 153/92 H 01/09/18 12:00 98.7 F 01/09/18 11:55 98 Weight Admit Weight 153 lb 3.2 oz Weight 138 lb 0.15 oz Most Recent Monitor Data Heart Rate from ECG 84 NIBP 127/81 NIBP BP-Mean 93 Respiration from ECG 22 SpO2 95 I&O: 01/08/18 01/09/18 01/10/18 06:59 06:59 06:59 Intake Total 1359 996 480 Output Total 280 300 100 Balance 1079 696 380 Result Diagrams: 01/09/18 04:38 01/09/18 04:38 Additional Labs: Accuchecks 01/09/18 01/09/18 01/09/18 20:48 16:54 11:58 POC Glucose 86 94 91 Phys Exam - Physical Examination Neck: no nodes mild rales to lower bases Cardiovascular: RRR, no significant murmur Gastrointestinal: soft, non-tender Musculoskeletal: no edema Dx/Plan - Plan * . 1) acute hypoxic resp failure 2) ESRD on dialysis 3) diastolic HF 4) hpothyrodism 5) htn plan: possible secondary to volume overload vs pna. pt on abx for now. intubated 01/06 on dialysis per nephrology pt's last echo was 2012 her ef was 70%, echo done ef of 60-65% pt's bp is labile, will continue to monitor. pt extubated 01/08 pt on oral abx. Review of Systems - Review of Systems ENT: negative: Ear Pain, Ear Discharge, Nose Pain, Nose Discharge, Nose Congestion, Mouth Pain, Mouth Swelling, Throat Pain, Throat Swelling, Other Respiratory: negative: Cough, Dry, Shortness of Breath, Hemoptysis, SOB with Excertion, Pleuritic Pain, Sputum, Wheezing Cardiovascular: negative: chest pain, palpitations, orthopnea, paroxysmal nocturnal dyspnea, edema, light headedness, other - Medications/Allergies Allergies/Adverse Reactions: Allergies Allergy/AdvReac Type Severity Reaction Status Date / Time No Known Allergies Allergy Unverified 10/06/13 17:19 Medications: Current Medications Acetaminophen (Tylenol) [address] Q6H PRN PRN Reason: Fever > 101 or Mild Pain Last Admin: 01/07/18 16:04 Dose: 650 mg Acetaminophen (Tylenol) 650 mg PO Q6H PRN PRN Reason: Pain Last Admin: 01/09/18 21:43 Dose: 650 mg Amlodipine Besylate (Norvasc) 10 mg PO DAILY [facility] Last Admin: 01/09/18 09:11 Dose: 10 mg Carvedilol (Coreg) 25 mg PO BID [facility] Last Admin: 01/09/18 20:35 Dose: 25 mg Cefdinir (Omnicef) 300 mg PO DAILY [facility] Stop: 01/13/18 09:01 Last Admin: 01/09/18 09:11 Dose: 300 mg Citalopram Hydrobromide (Celexa) 10 mg PO DAILY [facility] Last Admin: 01/09/18 09:09 Dose: 10 mg Clonidine (Catapres) 0.3 mg PO TID [facility] Last Admin: 01/09/18 20:35 Dose: 0.3 mg Dextrose/Water (Dextrose 50%) 25 gm SLOW IVP PRN PRN PRN Reason: Hypoglycemia Last Admin: 01/07/18 05:46 Dose: 25 gm Famotidine (Pepcid) 20 mg IV DAILY [facility] Last Admin: 01/09/18 09:12 Dose: 20 mg Glucagon (Glucagon) 1 mg IM PRN PRN PRN Reason: Hypoglycemia Heparin Sodium (Porcine) (Heparin) 5,000 units SC TID [facility] Last Admin: 01/09/18 20:38 Dose: 5,000 units Dextrose/Water (D5w) 1,000 mls @ 0 mls/hr IV .Q0M PRN; As Directed PRN Reason: Hypoglycemia Vancomycin HCl 1 gm/ Device 200 mls @ 200 mls/hr IVPB WILLCALL [facility] Last Admin: 01/09/18 11:53 Dose: 200 mls Vancomycin HCl 750 mg/ Sodium (Chloride) 250 mls @ 250 mls/[facility] Vancomycin HCl 500 mg/ Sodium (Chloride) 100 mls @ 100 mls/hr IVPB [facility] Insulin Human Lispro (Humalog) 0 units SC .MILD SLIDING SCALE PRN PRN Reason: Mild Correctional Scale Labetalol HCl (Normodyne) 10 mg SLOW IVP Q4H PRN PRN Reason: SBP Greater Than 180 Miscellaneous Medication (Pharmacy To Dose) 1 each IVPB PRN PRN PRN Reason: Pharmacy to dose Nifedipine (Procardia Xl) 30 mg PO DAILY [facility] Last Admin: 01/09/18 09:11 Dose: 30 mg Hold Vancomycin For (Level >20) 0 each FS .AT DIALYSIS [facility] Prednisone (Prednisone) 5 mg PO QAM-WM [facility] Last Admin: 01/09/18 09:47 Dose: 5 mg Sodium Chloride (Flush - Normal Saline) 10 ml IVF PRN PRN PRN Reason: Saline Flush Last Admin: 01/08/18 12:21 Dose: 10 ml Sodium Chloride (Flush - Normal Saline) 10 ml IVF Q12HR [facility] Last Admin: 01/09/18 20:38 Dose: 10 ml
[2018-01-10 05:38] VITALS: BP 141/86
[2018-01-10 05:43] LABS: ALT (SGPT) 14 U/L (8-55); AST (SGOT) 37 U/L (5-34); Albumin 4.2 g/dL (3.5-5.0); Alkaline Phosphatase 78 U/L (40-150); Anion Gap 23 mmol/L (10-20); BUN (Urea Nitrogen) 43 mg/dL (7.0-18.7); Bilirubin, Total 0.6 mg/dL (0.2-1.2); Calc. Creatinine Clearance 9 mL/min (70-130); Calcium 10.4 mg/dL (7.8-10.44); Carbon Dioxide 26 mmol/L (22-29); Chloride 94 mmol/L (98-107); Estimated GFR-MDRD 6; Globulin 3.9 g/dL (2.4-3.5); Glucose 98 mg/dL (70-105); Potassium 4.3 mmol/L (3.5-5.1); Protein, Total 8.1 g/dL (6.0-8.3); Sodium 139 mmol/L (136-145)
[2018-01-10 06:55] LABS: Band 2 % (5-11); Eosinophils 6 % (0-10); Hemoglobin 12.3 g/dL (12.0-16.0); Lymphocytes 37 % (21-51); MDiff Complete? YES; Mean Corpuscular HGB CONC 31.4 g/dL (32.0-36.0); Mean Corpuscular Hemoglobin 28.6 pg (27.0-31.0); Mean Corpuscular Volume 91.2 fl (81.0-99.0); Mean Platelet Volume 8.2 fL (7.4-10.4); Monocytes 1 % (0-10); Neutrophil 53 % (42-75); Platelet Count 305 thou/uL (130-400); RBC Distribution Width 15.5 % (11.5-14.5); White Blood Cell (WBC) Count 9.2 thou/uL (4.8-10.8)
[2018-01-10 08:13] VITALS: TEMP 98.4
[2018-01-10] MEDS: cloNIDine 0.3 MG TAB PO SCH (08:57)
[2018-01-10] MEDS: Citalopram 20 MG TAB PO SCH (08:57)
[2018-01-10] MEDS: Cefdinir 300 MG CAP PO SCH (08:58)
[2018-01-10] MEDS: Amlodipine 10 MG TAB PO SCH (08:58)
[2018-01-10] MEDS: predniSONE 5 MG TAB PO SCH (08:58)
[2018-01-10] MEDS: Carvedilol 25 MG TAB PO SCH (08:58)
[2018-01-10] MEDS: Heparin 5,000 UNITS/ML VIAL SC SCH (08:58)
[2018-01-10] MEDS: NIFEdipine XL 30 MG TAB PO SCH (08:58)
--- NOTE | 2018-01-10 09:06 | RAD ---
AP VIEW CHEST: HISTORY: Ventilator-dependent patient. FINDINGS: AP view chest was obtained on 01/10/18. Comparison is made to previous exam from 01/09/18. AP view chest demonstrates again cardiomegaly noted. The lungs demonstrate no evidence of significan t pulmonary parenchymal lesions. Areas of opacity in the left lung base appear to have improved aera tion compared to the previous day's exam. The right lung is well aerated. IMPRESSION: 1. Cardiomegaly. 2. Improving aeration in the left lower lobe. POS: [facility]
[2018-01-10] MEDS: Famotidine 40 MG/4 ML VIAL IV SCH (09:51)
--- NOTE | 2018-01-10 09:51 | PRG ---
DATE OF SERVICE: 01/10/2018 RENAL MEDICINE SUBJECTIVE: Ms. Hernandez is a 37-year-old black female with known history of ESRD. She came in [facility]. She received consecutive dialysis. She is now much improved. No shortness of breath. She has been transferred out of the ICU yesterday . PHYSICAL EXAMINATION: VITAL SIGNS: Blood pressure is 141/86, heart rate is 82, respiratory rate 16, temperature 98.4, puls e ox 98% room air. GENERAL: Awake, alert, supine, comfortable. SKIN: Adequate turgor. HEENT: Pinkish conjunctivae, anicteric sclerae. NECK: No neck mass, no carotid bruits, no JVD. CHEST: No deformities. LUNGS: Clear breath sounds. HEART: Normal sinus rhythm. No murmurs, no gallops, no rubs. ABDOMEN: Globular, soft, nontender, no masses. EXTREMITIES: No edema, no deformities. MEDICATIONS: Medications of 01/10/2018 reviewed. LABORATORY DATA: Laboratories of 01/10/3018; white count 9.2, hemoglobin 12.3, sodium 139, potassium 4.3, chloride 94, carbon dioxide 26, BUN 43, creatinine 8.44, glucose 96, calcium 10.4, AST 37, ALT 14, albumin 4.2. ASSESSMENT AND PLAN: 1. Congestive heart failure/volume overload, much improved clinically. Removed with hemodialysis. Received several days of dialysis. This morning, much improved. 2. End-stage renal disease, stable. Continue Sunday, Sunday, Sunday hemodialysis. No changes wi ll be made with her current dialysis regimen. 3. Case discussed with Dr. Garg. The patient can be discharged home from a renal point of view.
--- NOTE | 2018-01-10 09:52 | PRG ---
DATE OF SERVICE: 01/10/2018 Post extubation she is doing well, no distress, though she still has a slightly elevated blood pressu re. PHYSICAL EXAMINATION: VITAL SIGNS: Blood pressure 141/86, sats are 98 on room air, temperature is 98, respirations 18. CHEST: No wheezing. CARDIAC: Normal S1, S2. LABORATORY: White count 9000. Creatinine is 8.4. IMPRESSION: 1. Status post renal failure. 2. Respiratory failure. 3. Renal transplant. PLAN: From a Pulmonary standpoint of view, she can be discharged home on present medication. Follow up with her die maker electronic.
--- NOTE | 2018-01-10 13:01 | PDOC.PN ---
- Subjective Encounter Start Date: 01/10/18 Encounter Start Time: 13:00 Subjective: pt up in bed wants to go home - Objective Vital Signs & Weight: Vital Signs (12 hours) Temp Pulse Resp BP BP Pulse Ox 01/10/18 08:58 82 141/86 H 01/10/18 08:57 141/86 H 01/10/18 07:35 98.4 F 82 16 141/86 H 98 01/10/18 05:15 98.3 F 79 16 141/86 H 97 01/10/18 03:56 97 Weight Admit Weight 153 lb 3.2 oz Weight 135 lb 4 oz Most Recent Monitor Data Heart Rate from ECG 84 NIBP 127/81 NIBP BP-Mean 93 Respiration from ECG 22 SpO2 95 I&O: 01/09/18 01/10/18 01/11/18 06:59 06:59 06:59 Intake Total 996 480 480 Output Total 300 100 Balance 696 380 480 Result Diagrams: 01/10/18 05:19 01/10/18 05:19 Additional Labs: Accuchecks 01/10/18 01/10/18 01/09/18 11:21 05:19 20:48 POC Glucose 108 91 86 01/09/18 16:54 POC Glucose 94 Phys Exam - Physical Examination HEENT: PERRLA Neck: no nodes Respiratory: no wheezing, no rales Cardiovascular: RRR, no significant murmur Gastrointestinal: soft, non-tender Musculoskeletal: no edema Neurological: non-focal Dx/Plan - Plan * . 1) acute hypoxic resp failure 2) acute on chronic diastolic heart failure 3) ESRD on dialysis 4) diastolic HF 5) hpothyrodism 6) htn plan: possible secondary to volume overload vs pna. pt on abx for now. intubated 01/06 on dialysis per nephrology pt's last echo was 2012 her ef was 70%, echo done ef of 60-65% pt's bp is labile, will continue to monitor. pt extubated 01/08 pt on oral abx. Review of Systems - Review of Systems Eyes: negative: Pain, Vision Change, Conjunctivae Inflammation, Eyelid Inflammation, Redness, Other ENT: negative: Ear Pain, Ear Discharge, Nose Pain, Nose Discharge, Nose Congestion, Mouth Pain, Mouth Swelling, Throat Pain, Throat Swelling, Other Respiratory: negative: Cough, Dry, Shortness of Breath, Hemoptysis, SOB with Excertion, Pleuritic Pain, Sputum, Wheezing - Medications/Allergies Allergies/Adverse Reactions: Allergies Allergy/AdvReac Type Severity Reaction Status Date / Time No Known Allergies Allergy Unverified 10/06/13 17:19 Medications: Current Medications Acetaminophen (Tylenol) 650 mg TN Q6H PRN PRN Reason: Fever > 101 or Mild Pain Last Admin: 01/07/18 16:04 Dose: 650 mg Acetaminophen (Tylenol) 650 mg PO Q6H PRN PRN Reason: Pain Last Admin: 01/09/18 21:43 Dose: 650 mg Amlodipine Besylate (Norvasc) 10 mg PO DAILY [facility] Last Admin: 01/10/18 08:58 Dose: 10 mg Carvedilol (Coreg) 25 mg PO BID [facility] Last Admin: 01/10/18 08:58 Dose: 25 mg Cefdinir (Omnicef) 300 mg PO DAILY [facility] Stop: 01/13/18 09:01 Last Admin: 01/10/18 08:58 Dose: 300 mg Citalopram Hydrobromide (Celexa) 10 mg PO DAILY [facility] Last Admin: 01/10/18 08:57 Dose: 10 mg Clonidine (Catapres) 0.3 mg PO TID [facility] Last Admin: 01/10/18 08:57 Dose: 0.3 mg Dextrose/Water (Dextrose 50%) 25 gm SLOW IVP PRN PRN PRN Reason: Hypoglycemia Last Admin: 01/07/18 05:46 Dose: 25 gm Famotidine (Pepcid) 20 mg IV DAILY [facility] Last Admin: 01/10/18 09:51 Dose: 20 mg Glucagon (Glucagon) 1 mg IM PRN PRN PRN Reason: Hypoglycemia Heparin Sodium (Porcine) (Heparin) 5,000 units SC TID [facility] Last Admin: 01/10/18 08:58 Dose: 5,000 units Dextrose/Water (D5w) 1,000 mls @ 0 mls/hr IV .Q0M PRN; As Directed PRN Reason: Hypoglycemia Vancomycin HCl 1 gm/ Device 200 mls @ 200 mls/hr IVPB WILLCALL [facility] Last Admin: 01/09/18 11:53 Dose: 200 mls Insulin Human Lispro (Humalog) 0 units SC .MILD SLIDING SCALE PRN PRN Reason: Mild Correctional Scale Labetalol HCl (Normodyne) 10 mg SLOW IVP Q4H PRN PRN Reason: SBP Greater Than 180 Miscellaneous Medication (Pharmacy To Dose) 1 each IVPB PRN PRN PRN Reason: Pharmacy to dose Nifedipine (Procardia Xl) 30 mg PO DAILY [facility] Last Admin: 01/10/18 08:58 Dose: 30 mg Hold Vancomycin For (Level >20) 0 each FS .AT DIALYSIS [facility] Prednisone (Prednisone) 5 mg PO QAM-WM [facility] Last Admin: 01/10/18 08:58 Dose: 5 mg Sodium Chloride (Flush - Normal Saline) 10 ml IVF PRN PRN PRN Reason: Saline Flush Last Admin: 01/08/18 12:21 Dose: 10 ml Sodium Chloride (Flush - Normal Saline) 10 ml IVF Q12HR [facility] Last Admin: 01/10/18 08:59 Dose: 10 ml
--- NOTE | 2018-01-10 19:32 | DIS ---
DATE OF ADMISSION: 01/06/2018 DATE OF DISCHARGE: 01/10/2018 HOSPITAL COURSE: The patient is a pleasant 37-year-old female with significant past medical history of end-stage renal disease, status post renal transplant with rejection with dialysis Sunday, , and Sunday, who presented to the hospital with worsening shortness of breath. Patient initially was intubated in the ER and for acute respiratory failure. The patient then was extubated on 018. Patient initially was put on IV antibiotics; however, this was stopped since there were no over t signs of infection. She also had an echocardiogram which indicated an EF of 60-65% with mild sania l regurgitation and mild tricuspid regurgitation. The patient was also seen by Nephrology and Pulmon ology. The patient will be discharged home. She will follow up with Dr. Anderson as an outpatient. DISCHARGE DIAGNOSES: 1. Acute on chronic diastolic heart failure. 2. Acute hypoxic respiratory failure. 3. End-stage renal disease on dialysis. 4. Hypothyroidism. 5. Hypertension. DISCHARGE MEDICATIONS: Patient will be discharged home with the following medications: Clonidine 0. 3 mg p.o. t.i.d., vitamin D3 of 2000 units daily, pravastatin 20 mg at bedtime, carvedilol 25 mg b.i. d., gabapentin 300 mg at bedtime, Velphoro one p.o. t.i.d., Ambien 5 mg bedtime, insulin 15 units sub cu b.i.d., ferrous sulfate 325 p.o. t.i.d., Pepcid 20 mg at bedtime, Colace 100 mg p.o. b.i.d. She w as started on Procardia 30 mg p.o. daily, and citalopram 10 mg p.o. daily, so she is going to resume all her home medication except for a new medication that was added was Procardia and her Norvasc was discontinued.
--- NOTE | 2018-01-12 13:13 | EKG ---
Test Reason : Blood Pressure : / mmHG Vent. Rate : 130 BPM Atrial Rate : 130 BPM P-R Int : 148 ms QRS Dur : 086 ms QT Int : 308 ms P-R-T Axes : 073 077 059 degrees QTc Int : 453 ms Sinus tachycardia Possible Left atrial enlargement Left ventricular hypertrophy with repolarization abnormality Septal infarct , age undetermined Abnormal ECG Confirmed by DIAZ LUDWIG ([id number]), editor map VARSHA SEPULVEDA ([id number]) on 01/12/2018 1:12:06 PM Referred By: Confirmed By:DIAZ LUDWIG
== END 2018-01-10 14:50 | disposition home or self-care (01) | DRG 208 ==
LOC: ERS 20:19 → CCU 22:48 → ONC 01-09 17:22
PROVIDERS: ADMIT Internal Medicine; ATTEND Internal Medicine
PROC: 5A1945Z Respiratory Ventilation, 24-96 Consecutive Hours (ICD-10-PCS; principal; 2018-01-06)
PROC: 5A1D70Z Performance of Urinary Filtration, Intermittent, Less than 6 Hours Per Day (ICD-10-PCS; 2018-01-06)
PROC: 5A1D70Z Performance of Urinary Filtration, Intermittent, Less than 6 Hours Per Day (ICD-10-PCS; 2018-01-07)
PROC: 5A1D70Z Performance of Urinary Filtration, Intermittent, Less than 6 Hours Per Day (ICD-10-PCS; 2018-01-09)
DX: J96.01 Acute respiratory failure with hypoxia (principal); I13.2 Hypertensive heart and chronic kidney disease with heart failure and with stage 5 chronic kidney disease, or end stage renal disease; T86.11 Kidney transplant rejection; E11.22 Type 2 diabetes mellitus with diabetic chronic kidney disease; N18.6 End stage renal disease; I50.33 Acute on chronic diastolic (congestive) heart failure; E87.5 Hyperkalemia; E03.9 Hypothyroidism, unspecified; E78.5 Hyperlipidemia, unspecified; Z99.2 Dependence on renal dialysis; J96.02 Acute respiratory failure with hypercapnia; Z79.4 Long term (current) use of insulin; I08.1 Rheumatic disorders of both mitral and tricuspid valves; F32.9 Major depressive disorder, single episode, unspecified; Z87.891 Personal history of nicotine dependence
CPT/HCPCS: 36415; 36416; 71045; 80053; 80202; 82553; 82805; 83880; 84443; 84484; 85007; 85025; 85027; 85610; 85730; 87040; 87340; 90935; 93005; 93306; 93798; 94002; 94003; 94640; 96365; 96366; 96375; 99292; A4216; G0257; J0360; J1644; J1720; J1940; J2060; J2250; J2543; J2704; J3010; J3370; J7050; J7620

== ENCOUNTER 2018-05-09 16:32 | Emergency (ER) | payer MEDICARE ==
[2018-05-09 17:15] LABS: Hemoglobin 10.2 g/dL (12.0-16.0); Mean Corpuscular HGB CONC 33.2 g/dL (32.0-36.0); Mean Corpuscular Hemoglobin 32.4 pg (27.0-31.0); Mean Corpuscular Volume 97.7 fL (78.0-98.0); Mean Platelet Volume 7.3 fL (7.4-10.4); Platelet Count 306 thou/uL (130-400); RBC Distribution Width 18.4 % (11.5-14.5); Red Blood Cell (RBC) Count 3.16 mill/uL (4.20-5.40); White Blood Cell (WBC) Count 6.7 thou/uL (4.8-10.8)
[2018-05-09 17:17] LABS: BHCG - Serum Negative (NEGATIVE); Pregs Control Background? CLEAR/WHITE (CLR/WHITE); Pregs Control Bar Appear? YES (CONTROL BAR)
[2018-05-09 17:26] LABS: ALT (SGPT) Less than 7 U/L (8-55); AST (SGOT) 31 U/L (5-34); Albumin 4.5 g/dL (3.5-5.0); Alkaline Phosphatase 60 U/L (40-150); Anion Gap 18 mmol/L (10-20); BUN (Urea Nitrogen) 30 mg/dL (7.0-18.7); Bilirubin, Total 0.7 mg/dL (0.2-1.2); Calc. Creatinine Clearance 0 mL/min (70-130); Calcium 8.8 mg/dL (7.8-10.44); Carbon Dioxide 26 mmol/L (22-29); Chloride 93 mmol/L (98-107); Estimated GFR-MDRD 6; Globulin 3.2 g/dL (2.4-3.5); Glucose 79 mg/dL (70-105); Lipase 29 U/L (8-78); Potassium 4.4 mmol/L (3.5-5.1); Protein, Total 7.7 g/dL (6.0-8.3); Sodium 133 mmol/L (136-145)
[2018-05-09 17:29] LABS: #Basophils 0.1 thou/uL (0.0-0.2); #Eosinphils 0.5 thou/uL (0.0-0.7); #Lymphocytes 2.1 thou/uL (1.20-3.40); #Monocytes 0.5 thou/uL (0.11-0.59); #Neutrophils 3.1 thou/uL (1.40-6.50); %Basophils 1.3 % (0.0-1.0); %Eosinophils 7.2 % (0.0-10.0); %Lymphocytes 33.4 % (21.0-51.0); %Monocytes 8.5 % (0.0-10.0); %Neutrophils 49.5 % (42.0-75.0); Anisocytosis SLIGHT = 6-15 cells (100X) (0-5/hpf); MDiff Complete? YES; Ovalocytes SLIGHT = 2-5 cells (100X) (0-1/hpf); PLT Morphology Comment Appears Adequate; Polychromasia SLIGHT = 2-3 cells (100X) (0-2/hpf)
[2018-05-09 17:36] LABS: Bilirubin Negative (Negative); Blood, Urine Moderate (Negative); Clarity CLOUDY (Clear); Glucose, Urine (Dipstick) Negative (Negative); Leukocyte Large (Negative); Nitrite Positive (Negative); Protein, Urine (Dipstick) 300 mg/dL (Neg-Trace); Specific Gravity, Urine 1.005 (1.002-1.036); Urobilinogen 0.2 mg/dL (0.2-1.0); pH, Urine 7.5 (5.0-9.0)
[2018-05-09 17:38] LABS: Bacteria/HPF 2+ HPF (None Seen); Hyaline Casts/LPF 0-3 HYALINE CAST LPF (0-3 Hyaline); Pathc Cast-AUWi Flag 0.29 (0-2.49); Squamous Epithelial 0-3 HPF (0-3)
[2018-05-09 18:01] LABS: Yeast-All Forms None Seen HPF (None Seen)
[2018-05-09] MEDS ORDERED: Promethazine HCl 25 MG/ML VIAL ONE (18:29)
[2018-05-09] MEDS ORDERED: Ketorolac Tromethamine 30 MG/ML VIAL ONE (18:29)
[2018-05-09] MEDS ORDERED: Metoclopramide HCl 10 MG/2 ML VIAL ONE (18:36)
[2018-05-09] MEDS ORDERED: diphenhydrAMINE 50 MG/ML VIAL ONE (18:45)
== END 2018-05-09 21:01 | disposition home or self-care (01) ==
LOC: ERS 16:32
DX: G43.909 Migraine, unspecified, not intractable, without status migrainosus (principal); N30.01 Acute cystitis with hematuria; Z79.899 Other long term (current) drug therapy; I12.0 Hypertensive chronic kidney disease with stage 5 chronic kidney disease or end stage renal disease; N18.6 End stage renal disease; Z99.2 Dependence on renal dialysis
CPT/HCPCS: 36415; 36416; 80053; 81003; 81015; 83690; 84703; 85025; 96365; 96366; 96375; J1200; J1885; J2550; J2765

== ENCOUNTER 2019-01-15 19:27 | Inpatient (IN) | payer MEDICARE ==
[2019-01-15 20:16] LABS: #Basophils 0.1 thou/uL (0.0-0.2); #Eosinphils 0.3 thou/uL (0.0-0.7); #Lymphocytes 1.5 thou/uL (1.20-3.40); #Monocytes 0.4 thou/uL (0.11-0.59); %Eosinophils 6.1 % (0.0-10.0); %Lymphocytes 28.6 % (21.0-51.0); %Monocytes 7.3 % (0.0-10.0); Hemoglobin 11.4 g/dL (12.0-16.0); Mean Corpuscular HGB CONC 30.7 g/dL (32.0-36.0); Mean Corpuscular Hemoglobin 29.9 pg (27.0-31.0); Mean Corpuscular Volume 97.3 fL (78.0-98.0); Mean Platelet Volume 9.7 fL (7.4-10.4); Platelet Count 163 thou/uL (130-400); RBC Distribution Width 16.7 % (11.5-14.5); Red Blood Cell (RBC) Count 3.82 mill/uL (4.20-5.40); White Blood Cell (WBC) Count 5.3 thou/uL (4.8-10.8)
[2019-01-15] MEDS ORDERED: cloNIDine 0.1 MG TAB ONE (20:26)
[2019-01-15 20:37] LABS: ALT (SGPT) Less than 7 U/L (8-55); AST (SGOT) 23 U/L (5-34); Albumin 4.4 g/dL (3.5-5.0); Alkaline Phosphatase 56 U/L (40-150); Anion Gap 17 mmol/L (10-20); BUN (Urea Nitrogen) 14 mg/dL (7.0-18.7); Bilirubin, Total 0.6 mg/dL (0.2-1.2); Calc. Creatinine Clearance 0 mL/min (70-130); Carbon Dioxide 29 mmol/L (22-29); Chloride 96 mmol/L (98-107); Estimated GFR-MDRD 9; Globulin 3.2 g/dL (2.4-3.5); Glucose 72 mg/dL (70-105); Potassium 3.6 mmol/L (3.5-5.1); Protein, Total 7.6 g/dL (6.0-8.3); Sodium 138 mmol/L (136-145)
--- NOTE | 2019-01-15 20:44 | RAD ---
AP VIEW CHEST: 01/15/19 HISTORY: Shortness of breath. 38-year-old female. AP view chest is obtained on 01/15/19. COMPARISON: Comparison made to previous exam from 01/10/18. AP view chest demonstrates massive cardiomegaly. Pulmonary vascular congestion seen. There is some bl unting of the left costophrenic angle possibly representing a small left side pleural effusion. IMPRESSION: Marked cardiomegaly concerning for cardiomyopathy. Pulmonary vascular congestion seen. The left costophrenic angle is now blunted suggesting a tiny left sided effusion. POS: [facility]
[2019-01-15] MEDS ORDERED: hydrALAZINE 20 MG/ML VIAL ONE ×2 (21:16→22:44)
[2019-01-15 22:17] LABS: CKMB 0.6 ng/mL (0-6.6)
[2019-01-16 00:57] LABS: Troponin I 0.032 ng/mL (< 0.028)
[2019-01-16 03:50] LABS: Troponin I 0.033 ng/mL (< 0.028)
[2019-01-16] MEDS ORDERED: Acetaminophen 325 MG TAB PO PRN (04:18)
[2019-01-16] MEDS ORDERED: Zolpidem Tartrate 5 MG TAB PO PRN (04:18)
[2019-01-16] MEDS ORDERED: Labetalol HCl 100 MG/20 ML VIAL SLOW IVP PRN (04:18)
[2019-01-16] MEDS ORDERED: cloNIDine 0.1 MG TAB PO PRN (04:18)
[2019-01-16] MEDS ORDERED: Ondansetron PF 4 MG/2 ML Vial IVP PRN (04:18)
[2019-01-16] MEDS ORDERED: cloNIDine 0.1 MG TAB ONE ×3 (05:33→11:15)
[2019-01-16] MEDS ORDERED: Minoxidil 2.5 MG TAB PO SCH (06:15)
[2019-01-16] MEDS ORDERED: Dextrose 5% in Water 1,000 ML IV PRN (08:26)
[2019-01-16] MEDS ORDERED: Insulin Regular 300 UNITS/3 ML VIAL SC PRN ×2 (08:26)
[2019-01-16] MEDS ORDERED: Dextrose 50% Abboject 50 ML SYRINGE SLOW IVP PRN (08:26)
[2019-01-16] MEDS: Famotidine 20 MG TAB PO SCH ×2 (09:00→20:39)
[2019-01-16] MEDS: cloNIDine 0.3 MG TAB PO SCH ×2 (09:00→20:39)
[2019-01-16] MEDS ORDERED: Famotidine 20 MG TAB ONE (09:03)
--- NOTE | 2019-01-16 09:14 | HP ---
CHIEF COMPLAINT: Chest pain and shortness of breath. HISTORY OF PRESENT ILLNESS: Ms. Hernandez is a pleasant 38-year-old woman with a history of end-stage renal disease, hypertension, and type 2 diabetes mellitus, who presented to the ER yesterday evening after developing central chest pain, which she rates as 8/10 in severity, described as a throbbing pain that remained intermittent for total of 2 hours. The pain is while she was in the waiting area. She did not take anything for the pain at home. She states she has been well in recent days and completed her dialysis yesterday without any complications. She does report having some mucus in her throat, but denies any sore throat. She has had an occasional cough productive for clear sputum. Denies any purulent sputum or hemoptysis. The patient states trouble with her breathing, it came after the chest pain started. She denies any radiating pain to her shoulders, neck, jaw, or else where. She has not had any nausea, vomiting, or abdominal pain. Denies any diaphoresis or associated presyncope/syncope. Has not noted any swelling in her legs. The patient states the only thing that seemed to make her pain somewhat better was when she lied flat in bed. She reports having issues with fluid around her heart in the past, but otherwise has not been taking this with any cardiac conditions and has never undergone any cardiac procedures or surgery. REVIEW OF SYSTEMS: All other review of systems apart from those mentioned above in the HPI are negative. ALLERGIES: NO KNOWN DRUG ALLERGIES. CURRENT MEDICATIONS: 1. Carvedilol 25 mg p.o. b.i.d. 2. Clonidine 0.3 mg p.o. t.i.d. 3. Famotidine 20 mg p.o. daily. 4. Pravastatin 40 mg p.o. at bedtime. 5. Macrobid 100 mg p.o. b.i.d. PAST MEDICAL HISTORY: 1. End-stage renal disease, dialysis on Sunday, Sunday, and Sunday. 2. Hypertension. 3. Diabetes mellitus. 4. Hyperlipidemia. PAST SURGICAL HISTORY: Dialysis shunt in left arm. FAMILY HISTORY: Noncontributory. SOCIAL HISTORY: The patient lives at home and is fully independent. She denies any tobacco use, alcohol use, or illicit drug use. LABORATORY DATA: White blood count 5.3, hemoglobin 11.4, hematocrit 37.2, and platelets 163. Sodium 138, potassium 3.6, BUN 14, creatinine 6.33, total bilirubin 0.6, AST 23, ALT less than 7, and alkaline phosphatase 56. CK-MB 0.6. Troponin indeterminate at 0.040, 0.032, and 0.033. Albumin 4.4, total protein 7.6. IMAGING DATA: Chest x-ray on 01/15/2019, marked cardiomegaly concerning for cardiomyopathy. Pulmonary vascular congestion with blunting of left costophrenic angle suggesting a tiny left-sided effusion. IMPRESSION AND PLAN: Ms. Hernandez is a pleasant 38-year-old woman, who is being admitted for management of the following; 1. Chest pain. The patient denies having any further episodes of chest pain. EKG done in the ER showed normal sinus rhythm with no ST changes or T-wave abnormalities. Findings, however, are suggestive of left ventricular hypertrophy. Troponins indeterminate as stated above. Chest x-ray has demonstrated changes concerning for cardiomyopathy. We will check BMP and obtain an echo. Consult with Cardiology has been placed. At the moment, the patient remains pain-free. We will continue to monitor. 2. Hypertension. Resume home medications and monitor blood pressure. 3. Diabetes mellitus. Verify home medications and resume. Continue insulin sliding scale and monitor glucose. 4. Hyperlipidemia. Resume home medications. 5. End-stage renal disease, on dialysis. Consult Nephrology. The patient is known to Dr. Anderson. Continue dialysis as per Renal Service. She would be due for dialysis tomorrow on 01/17/2019. 6. Gastrointestinal prophylaxis. 7. Venous thromboembolism prophylaxis. The patient's case to be discussed with Dr. Gordon for further recommendations. Job ID: [id number]
[2019-01-16 09:30] LABS: Anion Gap 18 mmol/L (10-20); BUN (Urea Nitrogen) 20 mg/dL (7.0-18.7); Calc. Creatinine Clearance 0 mL/min (70-130); Calcium 9.5 mg/dL (7.8-10.44); Carbon Dioxide 26 mmol/L (22-29); Cardiac Risk 3.3 (Less than 4.5); Chloride 98 mmol/L (98-107); Cholesterol 117 mg/dl (< 200 Desired); Estimated GFR-MDRD 7; Glucose 66 mg/dL (70-105); HDL Cholesterol 36 mg/dL (>60 Neg Risk); LDL Cholesterol, Calculated 65 mg/dL; Magnesium 1.9 mg/dL (1.6-2.6); Potassium 3.8 mmol/L (3.5-5.1); Sodium 138 mmol/L (136-145); Triglycerides 79 mg/dL (Less than 150)
[2019-01-16 10:45] LABS: #Basophils 0.1 thou/uL (0.0-0.2); #Eosinphils 0.1 thou/uL (0.0-0.7); #Lymphocytes 1.7 thou/uL (1.20-3.40); #Monocytes 0.4 thou/uL (0.11-0.59); #Neutrophils 3.4 thou/uL (1.40-6.50); %Basophils 0.9 % (0.0-1.0); %Eosinophils 2.4 % (0.0-10.0); %Lymphocytes 29.1 % (21.0-51.0); %Monocytes 7.3 % (0.0-10.0); %Neutrophils 60.2 % (42.0-75.0); Mean Corpuscular HGB CONC 31.6 g/dL (32.0-36.0); Mean Corpuscular Hemoglobin 29.1 pg (27.0-31.0); Mean Corpuscular Volume 92.1 fL (78.0-98.0); Platelet Count 199 thou/uL (130-400); RBC Distribution Width 16.5 % (11.5-14.5); White Blood Cell (WBC) Count 5.7 thou/uL (4.8-10.8)
[2019-01-16] MEDS: Heparin 5,000 UNITS/ML VIAL SC SCH ×2 (10:46→20:41)
--- NOTE | 2019-01-16 11:14 | PDOC.EVN ---
Event Note - Event Note Event Note: I have interviewed, discussed and examined pt with Bianca Sung regarding CP r /o. ESRD with HD and mild pulmonary edema with cardiomyopathy. Check 2D echo and trend cardiac biomarkers. Nephrology consult for timing of next HD session. Stable vital signs currently. Please see dictated H&P for full details. Agree with OBS admission and likely home in 24h.
[2019-01-16] MEDS ORDERED: cloNIDine 0.1 MG TAB PO SCH (16:00)
--- NOTE | 2019-01-16 19:27 | CON ---
DATE OF CONSULTATION: 01/16/2019 REASON FOR CONSULTATION: Chest pain. HISTORY OF PRESENT ILLNESS: Ms. Hernandez is a pleasant, 38-year-old, female, who comes to the hospital for chest pain. She has end-stage renal disease and has been on hemodialysis for a few years now. She had pain in the middle of the chest. She describes it as just a dull pain with a little bit of shortness of breath. She would lay flat in bed, and she would feel the pain got better. She would sit up, and the pain will get a little bit worse. She tells me that she has had evaluations of her heart in the past. She has been to [facility] in [place] for transplant evaluation, and she is on the transplant list. She had a stress test last year, that was positive and underwent a heart catheterization after that, and she was told that all her arteries look widely patent. Cardiology has been consulted for further evaluation and care. PAST MEDICAL HISTORY: 1. End-stage renal disease, on hemodialysis Sunday, Sunday, and Sunday. 2. Hypertension. 3. Type 2 diabetes. 4. Hyperlipidemia. PAST SURGICAL HISTORY: 1. Dialysis shunt in the left arm. 2. Left heart catheterization last year. FAMILY HISTORY: Noncontributory. SOCIAL HISTORY: No alcohol, tobacco, or drugs. OUTPATIENT MEDICATIONS: Include: 1. Carvedilol 25 mg b.i.d. 2. Clonidine 0.3 t.i.d. 3. Famotidine 20 mg a day. 4. Pravastatin 40 mg at bedtime. 5. Macrobid. ALLERGIES: NO KNOWN DRUG ALLERGIES. REVIEW OF SYSTEMS: A 12-point review of systems was done and was all negative unless stated in the history of present illness. PHYSICAL EXAMINATION: VITAL SIGNS: Temperature 98.7, pulse 87, respiratory rate 16, saturating 100% on room air. Blood pressure 169/87; on admission, it was 210/105. GENERAL: Awake, alert, and oriented x3, in no distress. HEENT: Normocephalic and atraumatic. NECK: Supple. LUNGS: Clear. CARDIOVASCULAR: S1 and S2. No S3 or S4. There is a grade 3/6 murmur, likely fistula referred sounds. ABDOMEN: Soft. Positive bowel sounds. EXTREMITIES: No edema. SKIN: Warm and dry. LABORATORY DATA: Laboratory work was reviewed. CBC with a white count of 5.3, hemoglobin of 11, hematocrit of 37, platelet count of 163. Chemistries are unremarkable except for elevated BUN and creatinine. Troponin was in the indeterminate range at 0.04, 0.03, and 0.03. BNP was 3338. LDL of 65, HDL of 36. TSH was normal. EKG was reviewed. Chest x-ray was reviewed. ASSESSMENT AND PLAN: 1. Chest pain: Likely related to her hypertensive urgency. Her blood pressure was in 200s/100s range. Much better now. She also had a little of pulmonary vascular congestion suggestive of volume overload. This would most likely cause her to have some chest tightness. At this time, we will get an echocardiogram. We will evaluate left ventricular function and valvular structures. This is pending right now. 2. Normal heart catheterization less than a year ago. We would only take her to the catheterization lab if her troponins were to increase significantly. Not at this time. Her troponin elevation is likely related to her volume overload and end-stage renal disease. A typical troponin elevation in this setting. 3. End-stage renal disease, on hemodialysis per Dr. Anderson. Thank you for letting me to participate in the care of your patient. We will follow. We will get an echocardiogram. Further recommendations pending results of echo. Job ID: [id number]
[2019-01-16] MEDS ORDERED: Terazosin HCl 5 MG CAP PO SCH (21:00)
--- NOTE | 2019-01-16 23:18 | CON ---
DATE OF CONSULTATION: HISTORY OF PRESENT ILLNESS: Ms. Hernandez is a 38-year-old black female with ESRD and admitted for shortness of breath secondary to CHF. She was found to have a severely elevated blood pressure. On close questioning, this patient was apparently well until about few hours prior to admission. She did receive dialysis yesterday without any difficulty. Later on in the afternoon, she became short of breath. She went today and was found to be severely hypertensive. Chest x-ray shows also CHF. Of interest, this patient was supposed to be on losartan, but she has discontinued this or her Pharmacy has discontinued this due to a recall. This was never replaced by another losartan batch. We are being consulted for emergent hemodialysis. She was noted to be in CHF and had labile hypertension. She is undergoing hemodialysis today. We are maxing out fluid removal with this patient. REVIEW OF SYSTEMS: Positive for shortness of breath, transient chest pain. No syncopal episode. No productive cough. No fever or chills. No dysuria. No urinary frequency. No headache. No diplopia. No hematochezia. No melena. No hematemesis. No abdominal pain. Appetite and energy level are fair. Occasional joint pain. No dysuria. HOME MEDICATIONS: Include the following; 1. Clonidine 0.3 mg p.o. t.i.d. 2. Ambien 5 mg at bedtime. 3. Velphoro-on hold. 4. Pravastatin 20 mg at bedtime. 5. NPH insulin 15 units subcu b.i.d. 6. Procardia XL 30 mg tablet once a day. 7. Gabapentin 300 mg at bedtime. 8. Pepcid 20 mg at bedtime. 9. Celexa 10 mg daily. 10. Coreg 25 mg p.o. b.i.d. PAST MEDICAL HISTORY: 1. Status post CHF. 2. Longstanding hypertension. 3. ESRD from hypertensive nephropathy status post failed living-related renal transplant. 4. Type 2 diabetes mellitus. 5. Depression. 6. Hyperlipidemia. PAST SURGICAL HISTORY: Status post failed living-related renal transplant, status post renal allograft biopsy, status post AV fistula placement, status post cuffed hemodialysis catheter placement. SOCIAL HISTORY: The patient lives in [place], has a live-in boyfriend. Two children. Alcohol, none. Smoked for 3 months-3 cigarettes per day. She is a retired OFFICE MANAGER. Education, high school. Currently, no smoking, no alcohol use. Status post blood transfusion. ALLERGIES: NONE. TRAUMA: None. IMMUNIZATION: Up-to-date. HOSPITALIZATIONS: Please see past medical history. FAMILY HISTORY: No family history of ESRD. PHYSICAL EXAMINATION: VITAL SIGNS: Blood pressure is currently 160/110 with a heart rate of 70. GENERAL: Awake, alert, comfortable, not in distress. SKIN: Adequate turgor. HEENT: She has pinkish conjunctivae. Anicteric sclerae. NECK: No neck mass. No carotid bruits. No JVD. CHEST: No deformities. LUNGS: Clear breath sounds. No wheezing. No crackles. HEART: Normal sinus rhythm. No murmurs, gallops, or rubs. ABDOMEN: Globular, soft. Nontender. No masses. EXTREMITIES: No edema. No deformities. LABORATORY DATA: January 16, 2019; white count 5.7, hemoglobin 11. Sodium 138, potassium 3.8, chloride 98, carbon dioxide 26, BUN 20, creatinine 7.96, glucose 66, calcium 9.5, magnesium 1.9. BNP is 3338. Troponin I 0.033. Cholesterol 117. TSH 1.2. IMAGING STUDIES: Chest x-ray shows CHF. ASSESSMENT AND PLAN: 1. Congestive heart failure, emergent hemodialysis with fluid removal. Attempting 2 to 3 L of fluid removal as tolerated. 2. End-stage renal disease-the patient underwent extra dialysis for fluid removal today. We will then continue her Sunday, Sunday, and Sunday hemodialysis of three and half hours regimen. Heparin to be used by the nurse only as needed. 3. Labile hypertension. Resume BP medications. I will resume the clonidine at 0.3 mg p.o. t.i.d. Please note, nifedipine was increased from 30 mg to 60 mg XL tab per day in view of the fact that the patient is no longer taking losartan due to the recall. 4. We could also add terazosin at 5 mg tablet at bedtime at nighttime with the patient. 5. Type 2 diabetes mellitus, on insulin regimen. Overall agree with current management. Job ID: [id number]
[2019-01-17 07:09] LABS: #Basophils 0.1 thou/uL (0.0-0.2); #Eosinphils 0.3 thou/uL (0.0-0.7); #Lymphocytes 1.8 thou/uL (1.20-3.40); #Monocytes 0.5 thou/uL (0.11-0.59); #Neutrophils 1.8 thou/uL (1.40-6.50); %Eosinophils 7.3 % (0.0-10.0); %Lymphocytes 39.5 % (21.0-51.0); %Monocytes 10.2 % (0.0-10.0); %Neutrophils 40.9 % (42.0-75.0); Hemoglobin 11.6 g/dL (12.0-16.0); Mean Corpuscular HGB CONC 32.6 g/dL (32.0-36.0); Mean Corpuscular Hemoglobin 29.8 pg (27.0-31.0); Mean Corpuscular Volume 91.3 fL (78.0-98.0); Platelet Count 211 thou/uL (130-400); RBC Distribution Width 16.7 % (11.5-14.5); Red Blood Cell (RBC) Count 3.91 mill/uL (4.20-5.40); White Blood Cell (WBC) Count 4.4 thou/uL (4.8-10.8)
[2019-01-17 07:27] LABS: Anion Gap 16 mmol/L (10-20); BUN (Urea Nitrogen) 16 mg/dL (7.0-18.7); Calc. Creatinine Clearance 12 mL/min (70-130); Calcium 9.3 mg/dL (7.8-10.44); Carbon Dioxide 28 mmol/L (22-29); Chloride 97 mmol/L (98-107); Estimated GFR-MDRD 8; Glucose 96 mg/dL (70-105); Potassium 3.8 mmol/L (3.5-5.1); Sodium 137 mmol/L (136-145)
[2019-01-17] MEDS: Famotidine 20 MG TAB PO SCH (09:00)
[2019-01-17] MEDS ORDERED: NIFEdipine XL 60 MG TAB PO SCH (09:00)
[2019-01-17] MEDS: Heparin 5,000 UNITS/ML VIAL SC SCH (09:00)
[2019-01-17] MEDS: cloNIDine 0.3 MG TAB PO SCH (09:00)
--- NOTE | 2019-01-17 09:54 | PRG ---
DATE OF SERVICE: 01/17/2019 SUBJECTIVE: Ms. Hernandez is a 38-year-old black female, who was admitted for labile hypertension and CHF. She underwent emergent dialysis yesterday. BP medications were adjusted and she is feeling better. No new complaints. No chest pain or shortness of breath. She is currently undergoing hemodialysis and I am at the bedside supervising her dialysis. OBJECTIVE: VITAL SIGNS: Blood pressure 156/83, heart rate 80, respiratory rate 16, temperature 98.7, and pulse ox 94% on room air. GENERAL: Awake, alert, comfortable, not in distress. SKIN: Adequate turgor. HEENT: Pinkish conjunctivae. Anicteric sclerae. NECK: No neck mass. No carotid bruits. No JVD. CHEST: No deformities. LUNGS: Clear breath sounds. No wheezing. No crackles. HEART: Normal sinus rhythm. No murmur. No gallops. No rubs. ABDOMEN: Globular, soft, and nontender. No masses. EXTREMITIES: No edema. No deformities. MEDICATIONS: Medications of January 17, 2019, was reviewed. LABORATORY DATA: Laboratories of January 17, 2019; white count 4.4, hemoglobin 11.6. Sodium 137, potassium 3.8, chloride 97, carbon dioxide 28, BUN 16, creatinine 6.64, glucose 96, and calcium 9.3. ASSESSMENT AND PLAN: 1. Labile hypertension, much improved. Continue current BP medications. Please note, we have increased her nifedipine from 30 to 60 mg tablet once a day. This is because she no longer takes losartan. Continue the other BP medications. 2. Anemia. No indication for any Epogen. 3. Congestive heart failure, clinically much improved with fluid removal. We are currently maxing out fluid removal with dialysis today. Job ID: [id number]
[2019-01-17 12:14] VITALS: TEMP 98.4
[2019-01-17 16:06] VITALS: BP 162/94
--- NOTE | 2019-01-17 18:09 | DIS ---
DATE OF ADMISSION: 01/15/2019 DATE OF DISCHARGE: 01/17/2019 CONSULTING PHYSICIANS: 1. Dr. Andres, Cardiology. 2. Dr. Anderson, Nephrology. DISCHARGE DIAGNOSES: 1. Hypertensive urgency, resolved. 2. Moderate pericardial effusion without hemodynamic tamponade. 3. End-stage renal disease, on hemodialysis Sunday, Sunday, and Sunday. 4. Hypertension. 5. Type 2 diabetes. 6. Hyperlipidemia. HOSPITAL COURSE: Ms. Hernandez is a very pleasant 38-year-old woman, who was admitted for chest pain and underwent investigations including a chest x-ray that demonstrated marked cardiomegaly concerning for cardiomyopathy. Pulmonary vascular congestion seen and the left costophrenic angle was blunted suggesting left-sided effusion. The patient did undergo a hemodialysis with removal of 2.5 L. She was seen by Dr. Anderson today and is normally due for dialysis on Fridays with removal of an additional [address] Anderson increased her nifedipine from 30 to 60 mg daily given her labile hypertension. With regards to her CHF, she was clinically improved following fluid removal. She underwent an echocardiogram yesterday that showed an EF of 60% to 65% with moderate-sized pericardial effusion without hemodynamic evidence of tamponade and mild LVH. She also had mild TR/MR. Laboratory studies have been unremarkable. Her creatinine is improved today to 6.64. GFR is 8, which is at baseline. Of note, her BNP on initial presentation was elevated at 3338 associated with her end-stage renal disease rather than her heart failure. The patient has had symptomatic improvement with shortness of breath and has had no further episodes of chest pain. She is therefore cleared for discharge home with plans to follow up as an outpatient. REVIEW OF SYSTEMS: On day of discharge, the patient states she feels well and is without complaints. Her breathing has improved significantly. She does not feel short of breath when lying flat. Denies having any chest pain or tightness. She is feeling energetic. She has been tolerating oral intake without nausea or vomiting. Denies any abdominal pain or cramping. Denies any urinary complaints. No headaches or dizziness. Her blood pressure is improved at 162/94. All other review of systems are negative. PHYSICAL EXAMINATION: GENERAL: The patient appears well developed and well nourished. She is in no acute distress. VITAL SIGNS: Temperature 98.4, pulse 90, respirations 16, O2 saturation 100% on room air, and BP 162/94. HEENT: Normocephalic and atraumatic. Pupils are equal, round, and reactive to light. Oropharynx is clear. NECK: Supple. LUNGS: Clear to auscultation bilaterally. CARDIAC: Regular rate and rhythm. ABDOMEN: Soft, nontender, and nondistended. Normoactive bowel sounds present. EXTREMITIES: No edema. No calf tenderness. NEUROLOGIC: Alert and oriented x3. SKIN: Without rash or jaundice. LABORATORY DATA: White blood count 4.4, hemoglobin 11.6, hematocrit 35.6, and platelets 211. Sodium 137, potassium 3.8, BUN 16, and creatinine 6.64. GFR 8, which is stable. IMAGING DATA: As mentioned above in the HPI. DISCHARGE MEDICATIONS: The patient advised to resume home medications. Advised to discontinue current dose of nifedipine 30 mg p.o. daily. Given a new prescription for nifedipine 60 mg p.o. once daily. CONDITION: Stable. DIET: Heart healthy/diabetic/renal diet. ACTIVITY: As tolerated. FOLLOWUP: The patient was advised to follow up with her primary care physician within 1 week. Also advised to follow up with Dr. Anderson as scheduled for continued hemodialysis. DISPOSITION: The patient is medically cleared for discharge home today on January 17, 2019. The patient's case was discussed with Dr. Saxena, who agrees with plan of care as described above. Job ID: [id number]
== END 2019-01-17 15:36 | disposition home or self-care (01) | DRG 291 ==
LOC: ERS 19:27 → ERHOLD 22:45 → OBSVTOIN 22:45 → 2SW 01-16 16:26
PROVIDERS: ADMIT Internal Medicine; ATTEND Internal Medicine
PROC: 5A1D70Z Performance of Urinary Filtration, Intermittent, Less than 6 Hours Per Day (ICD-10-PCS; principal; 2019-01-15)
DX: I13.2 Hypertensive heart and chronic kidney disease with heart failure and with stage 5 chronic kidney disease, or end stage renal disease (principal); N18.6 End stage renal disease; I42.9 Cardiomyopathy, unspecified; I16.0 Hypertensive urgency; E11.22 Type 2 diabetes mellitus with diabetic chronic kidney disease; E78.5 Hyperlipidemia, unspecified; I50.9 Heart failure, unspecified; D63.1 Anemia in chronic kidney disease; Z99.2 Dependence on renal dialysis; Z87.891 Personal history of nicotine dependence; Z79.4 Long term (current) use of insulin
CPT/HCPCS: 36415; 36416; 71045; 80048; 80053; 80061; 82553; 83735; 83880; 84443; 84484; 85025; 90935; 93005; 93306; 96374; 96375; 96376; G0257; J0360; J1644; J3490